=== PATIENT | male | born 1980 | race Caucasian/White ===

== ENCOUNTER 2020-08-29 11:17 | Inpatient (IN) | payer OTHER, SELFPAY ==
[2020-08-29] VITALS (9 sets, daily range): BP systolic 115–198; BP diastolic 64–99; PULSE 72–106; RESP 16–20; TEMP 36.3–37.2; O2SAT 96–99; BMI 36.3; BMI 34.9; BMI 35.0
--- NOTE | 2020-08-29 11:34 | US_ITS ---
STUDY: SCROTUM ULTRASOUND REASON FOR EXAM: Male, 40 years old. Swollen scrotum with pain TECHNIQUE: Ultrasound evaluation of the scrotum was performed with color Doppler and static juárez-scale imaging. COMPARISON: None. FINDINGS: RIGHT TESTICLE INTRATESTICULAR: There is a normal size of the right testicle. The right testicle measures 1.2 x 3.4 x 2.1 cm. There is a homogenous echotexture. There is normal arterial and normal venous vascularity. There is no demonstrated right testicular mass or cyst. EXTRATESTICULAR: The epididymis is normal in size. The epididymis head measures 1.1 cm. There is normal vascularity of the epididymis. There is no demonstrated epididymal cystic structure. There is no demonstrated hydrocele. There is no demonstrated varicocele. There is extratesticular echogenic region with suggestion of hernia containing nondistended loops of small bowel. There is scrotal skin thickening. LEFT TESTICLE INTRATESTICULAR: There is a normal size of the left testicle. The left testicle measures 3.8 x 2.5 x 2.3 cm. There is a homogenous echotexture. There is normal arterial and normal venous vascularity. There is no demonstrated left testicular mass or cyst. EXTRATESTICULAR: The epididymis is enlarged. The epididymis head measures 2.3 cm. There is normal vascularity of the epididymis. There is no demonstrated epididymal cystic structure. There is a small hydrocele. There is no demonstrated varicocele. There is no demonstrated extratesticular mass or cyst. There is scrotal skin thickening. US/Testicular with Arterial Flow IMPRESSION: Normal bilateral testicles. Right extratesticular echogenic structure suggesting hernia with nondistended loops of bowel. Electronically Signed: Freddy Figueroa MD at 13:47 EST , Service support ,
--- NOTE | 2020-08-29 11:41 | ED.DCSUM_ITS ---
- ER Visit Summary Date of Service: 08/29/20 Chief Complaint: [Swelling to the right side of scrotum] History of Present Illness: The patient is a 40 M [presents to the emergency department with complaint of swelling to the right side of the scrotum that started initially 5 days ago. Patient states initially started as a small lump is progressively enlarged and become more painful. Patient denies fever. He has had some off-and-on body aches. His throat felt a little dry today. He denies cough. He denies COVID-19 exposures. Patient states that he had a vasectomy in March by . Patient has history of diabetes that is type II and he tries to control it with diet. Patient has remote history as a child of a hernia repair he believes to the left side.] Physical Examination: [HEENT-PERRLA, EOMI. Cranial nerves II through XII grossly intact. TMs clear. Mucous membranes moist. No adenopathy. Cardiovascular-regular rate and rhythm without murmur or ectopy Lungs-clear to auscultation, chest wall stable without crepitus or subcu emphysema Abdomen-normoactive bowel sounds, soft, nontender, no rebound or rigidity, no peritoneal signs. exam-circumcised male. Patient has significant soft tissue swelling to the right side of the scrotum into the groin. He is got some excoriated skin that is oozing some purulent material. With compression of the indurated area moderate amount of free-flowing purulent debris expressed. There are some faint erythema and cellulitis noted. Testicles themselves are nontender. Normal cremasteric reflex. Extremities-intact ?4, normal range of motion, normal pulses, atraumatic] Test Results: [CBC with differential obtained showed a white count 11.8, hemoglobin 15, hematocrit 43, plates 182. Chemistries unremarkable. Glucose was 320. Lactate was 1.7. Ultrasound of the right scrotum and testicles obtained showed right extra testicular echogenic structure suggesting hernia with loop of bowel. I obtain a CT scan of the M pelvis with IV contrast to evaluate further and patient was noted to have a right inguinal hernia containing fat with infiltrative change of the skin of the scrotum. Patient noted to have a right inguinal hernia.] Emergency Department Course and Treatment: [Wound culture obtained from the drainage of the right side of the scrotum. IV line established and patient started on clindamycin. Blood cultures also ordered. I discussed case with general surgery and she felt this was more of a urologic issue and had no concern about the inguinal hernia containing fat. I did discuss case with patient's urologist who did asked that we admit patient to hospitalist and he would be happy to consult. At this point I do not see evidence of Piper's gangrene.] Treatment Plan: [Admit for IV antibiotics and possible further surgical intervention for incision and drainage] Disposition: [Admit] Impression: [Right scrotal abscess/cellulitis] This note was generated with [employer] dictation software. It may contain incorrect words, spelling, and punctuation that were not noted in review of the chart prior to signing ED Disposition - Plan for ED Patient: Referrals: Abram Villegas MD [Primary Care Provider] -
[2020-08-29 12:34] LABS: Absolute Lymphocyte Count 0.96 X10^3/uL (0.83-4.51); Absolute Neutrophil Count 9.3 X10^3/uL (2.0-7.7); Basophil# 0.03 X10^3/uL; Basophil% 0.3 % (0-1); Eosinophil# 0.01 X10^3/uL; Eosinophils% 0.1 % (0-5); Hematocrit 42.9 % (40-54); Lymphocyte # 0.96 X10^3/ul (4.0); Lymphocyte % 8.1 % (19-41); Mean Corpuscular Hgb 28.6 pg (27.0-32.0); Mean Corpuscular Volume 81.7 fL (80-94); Mean Platelet Vol. 11.5 fl (6.2-12.0); Monocyte# 1.44 X10^3/uL; Monocyte% 12.2 % (0-10); NRBC Flagged by Analyzer 0 % (0-5); Neutrophil # 9.27 X10^3/uL (2.7-7.7); Neutrophil % 78.5 % (47-70); Platelet Count 182 K/mm3 (150-450); RBC Distribution Width CV 11.9 % (11.6-14.6); RBC Distribution Width SD 34.9 fl (35.1-43.9); Red Blood Count 5.25 M/mm3 (4.6-6.2); White Blood Count 11.8 K/mm3 (4.4-11.0)
[2020-08-29 12:52] LABS: Lactic Acid 1.7 mmol/L (0.4-1.9)
[2020-08-29 12:53] LABS: Anion Gap 14 (5-15); BUN 11 mg/dL (7-18); Chloride 103 mmol/L (98-107); EST Glomerular Filtration Rate 88 mL/min (>60); Est Glom Filt Rate - Afr Amer 107 mL/min (>60); Estimated Creatinine Clearance 118.53 ml/min; Glucose 320 mg/dL (74-106); Sodium Level 133 mmol/L (136-145)
--- NOTE | 2020-08-29 13:49 | CT_ITS ---
STUDY: CT ABDOMEN AND PELVIS WITH CONTRAST REASON FOR EXAM: Male, 40 years old. RIGHT INGUINAL MASS/ABSCESS/HERNIA -- FOLLOW UP TO US DONE TODAY RADIATION DOSAGE (If Supplied By Facility): CTDIvol = ( 15.41 ) mGy, DLP = ( 1944.69 ) mGycm TECHNIQUE: Transaxial images were obtained from the dome of the diaphragm to the symphysis pubis without oral contrast. IV 100mL Isovue-300 was administered. Sagittal and coronal images were reconstructed. Individualized dose optimization techniques were used for this CT. COMPARISON: Ultrasound. FINDINGS: The visualized lung bases are unremarkable. The visualized portions of the heart are within normal limits. Normal liver. Normal gallbladder and extrahepatic biliary system. Normal spleen. Normal pancreas. Normal bilateral adrenal glands. Normal right kidney. Normal left kidney. Normal visualized stomach. Normal small intestine. Normal colon. The appendix is visualized and appears normal. Normal abdominal aorta. Normal inferior vena cava. Normal retroperitoneum. Normal urinary bladder. There is no free fluid in the abdomen or pelvis. There is a right inguinal hernia containing fat. There is infiltrative change and subcutaneous edema in the right inguinal region. There is bilateral scrotal skin thickening. Moderate degenerative change of the spine and hips. CT/Abdomen/Pelvis W IV Cont ONLY IMPRESSION: No intra-abdominal mass or obstruction. Scrotal skin thickening. Infiltrative changes in the right inguinal region. Fat-containing right inguinal hernia. Electronically Signed: Freddy Figueroa MD at 14:53 EST , Service support ,
--- NOTE | 2020-08-29 15:28 | NURSING ---
MED SURG WHITE SCROTAL ABSCESS/CELLULITIS, HYPERGLYCEMIA
--- NOTE | 2020-08-29 15:44 | HP.PCM_ITS ---
Problem List (1) Type 2 diabetes mellitus Status: Chronic (2) Cellulitis of scrotum Status: Acute (3) Obesity Status: Chronic History of Present Illness Date of Admission: 08/29/20 Chief Complaint: Right scrotal pain and swelling. The patient is a 40 year old M who presents emergency room due to right scrotal pain and swelling. Patient reports this began 5 days ago. He denies drainage or foul smell. Reports significant pain with movement. Denies fever, chills. Reports nausea without emesis which he feels is associated with episodes of pain. Denies other associated symptoms or complaints. Patient had vasectomy in March by Dr. Hamilton. He denies complications from surgery. He has a past medical history of type 2 diabetes mellitus, borderline hypertension, obesity. Patient states he was attempting diet and exercise in place of initiating medication for type 2 diabetes mellitus however states he has not been doing a good job lately. He also states he has been told he has borderline hypertension however has not previously been on medication regimen for this. Past Medical History Past Medical History (Chronic Problems): Chronic Problems Type 2 diabetes mellitus (Chronic) Obesity (Chronic) Allergies No Known Allergies Allergy (Verified 08/29/20 11:19) Home Medications: Ambulatory Orders Medication Instructions Recorded NK 08/29/20 Surgical History: - - Left shoulder labrum repair, vasectomy, hernia repair at age [age] Psychiatric History: No pertinent psych hx Lives: Spouse/ Significant Other Smoking Status: Never smoker Alcohol: Occasional Drugs: None - *Family History Maternal History Items: - - Denies known maternal medical history including cardiac history. Paternal History Items: - - Denies known paternal medical history including cardiac history. Review of Systems Constitutional: Denies: Chills, Fever, Weight Change HEENT: Denies: Head Aches, Sinus Congestion, Sinus Drainage Cardiovascular: Denies: Chest Pain, Palpitations Respiratory: Denies: Cough, Shortness of breath at rest, Sputum production Gastrointestinal: Denies: Abdominal Pain, Nausea, Vomiting Genitourinary: Denies: Dysuria Musculoskeletal: Denies: Joint Pain, Joint Tenderness Skin: Reports: - - Right scrotal redness, swelling and pain Neurological: Denies: Numbness, Tingling, Focal weakness Psychiatric: Denies: Anxiety, Depression, Homicidal Ideations, Suicidal Ideations Hematologic/ Lymphatic: Denies: Easy Bruising, Easy Bleeding VTE Information - Inpt Only VTE Present on Admission: No VTE Mechan Device Prophylaxis: None VTE Pharm Prophylaxis ordered?: No Reason prophylaxis not ordered:: Treatment Not Indicated - Physical Exam Vitals/I&O's: Vital Signs Temp Pulse Resp BP Pulse Ox 98.9 F 98 16 195/92 H 99 08/29/20 14:28 08/29/20 14:28 08/29/20 14:28 08/29/20 14:28 08/29/20 14:28 Oxygen Delivery Method Room Air Weight: 290 lb 5.581 oz Body Mass Index (BMI) 36.3 Intake and Output for Last 24 Hours 08/27/20 08/28/20 08/29/20 23:59 23:59 23:59 Intake Total 106 / 106 Balance 106 / 106 General: Alert, Oriented x3, Cooperative HEENT: Atraumatic, PERRLA, EOMI, Normocephalic Neck: Supple, No JVD, Negative Carotid Bruits Lungs: Clear to auscultation, Normal air movement Cardiovascular: Regular rate, No murmurs Abdomen: Bowel Sounds Present, Soft, Non Tender, Non-Distended, Obese Extremities: No clubbing, No cyanosis, Edema - Right scrotal Skin: No rashes, No breakdown, - - Scrotal erythema and edema, right-sided indurated area Musculoskeletal: No Tenderness to Palpation of Joints or Extremities Neurological: Cranial nerves II-XII grossly intact, Neuro grossly intact Psych/Mental Status: Normal Affect, Appropriate Laboratory Results 08/29/20 11:45: WBC 11.8 H, RBC 5.25, Hgb 15.0, Hct 42.9, MCV 81.7, MCH 28.6, MCHC 35.0, RDW Std Deviation 34.9 L, RDW Coeff of Aric 11.9, Plt Count 182, MPV 11.5, Immature Gran % (Auto) 0.800, Neut % (Auto) 78.5 H, Lymph % (Auto) 8.1 L, [place] % (Auto) 12.2 H, Eos % (Auto) 0.1, Baso % (Auto) 0.3, Absolute Neuts (auto) 9.3 H, Absolute Lymphs (auto) 0.96, Nucleated RBC % 0 08/29/20 11:45: Sodium 133 L, Potassium 4.0, Chloride 103, Carbon Dioxide 16.0 L , Anion Gap 14, BUN 11, Creatinine 1.00, Estim Creat Clear Calc 118.53, Est GFR (MDRD) Af Amer 107, Est GFR (MDRD) Non-Af 88, BUN/Creatinine Ratio 11.0, Glucose 320 H, Calcium 9.0 08/29/20 11:45: Lactic Acid 1.7 Assessment/Plan All Active Problems Cellulitis of scrotum (Acute) 1. Right scrotal cellulitis with possible abscess- Dr. Hamilton consulted from ED. MRSA PCR pending. Cultures pending. IV Vanco and IV Zosyn. 2. Uncontrolled type 2 diabetes mellitus-blood glucose elevated on admission. Check hemoglobin A1c. Accu-Cheks with sliding scale insulin. 3. Elevated blood pressure without history of hypertension-patient reports history of borderline hypertension. As needed hydralazine for systolic blood pressure greater than 160. Follow BP trend, if remains above goal, will initiate oral regimen. 4. Obesity-encouraged diet and lifestyle modifications. DVT prophylaxis- Low risk, not indicated This patient was seen by FELICIANO Bernstein under the supervision of Dr. Rodriguez.
[2020-08-29] MEDS: 0.9% Normal Saline 1,000 ML 100 ML IV (16:58)
[2020-08-29] MEDS: 0.9% Saline Lock 10 ML Syringe IV ×2 (16:58→18:37)
[2020-08-29] MEDS: Insulin Lispro 100 UNIT/ML INSULN.PEN SC ×2 (17:08→21:20)
[2020-08-29 17:21] LABS: M R Staph aureus DNA By PCR Negative (Negative); Staph aureus DNA By PCR NEGATIVE (Negative)
[2020-08-29 17:22] LABS: Probe Check PASS; Specimen Processing Control PASS
[2020-08-29 17:25] LABS: Hemoglobin A1c 10.9 % (3.8-5.6)
[2020-08-29 17:35] LABS: Bedside Glucose 240 mg/dL (70-110)
[2020-08-29] MEDS: hydrALAZINE 20 MG/ML Vial 10 MG IV (18:36)
--- NOTE | 2020-08-29 18:51 | PCM.RX.CS ---
Consult Pharmacy has been consulted to manage selected antiobiotic: Vancomycin Type of Consult: New start Suspected Infection: Skin/Soft tissue Labs: Sodium 133 mmol/L (136-145) L 08/29/20 11:45 Potassium 4.0 mmol/L (3.5-5.1) 08/29/20 11:45 Chloride 103 mmol/L (98-107) 08/29/20 11:45 Carbon Dioxide 16.0 mmol/L (21.0-32.0) L 08/29/20 11:45 Anion Gap 14 (5-15) 08/29/20 11:45 BUN 11 mg/dL (7-18) 08/29/20 11:45 Creatinine 1.00 mg/dL (0.70-1.30) 08/29/20 11:45 Est GFR (MDRD) Af Amer 107 mL/min (>60) 08/29/20 11:45 Est GFR (MDRD) Non-Af 88 mL/min (>60) 08/29/20 11:45 BUN/Creatinine Ratio 11.0 RATIO (-) 08/29/20 11:45 Glucose 320 mg/dL (74-106) H 08/29/20 11:45 Weight used for dosin kg Goal Trough: 10-15 mcg/mL Pharmacy Plan for Drug Dosing: NEW START IV VANCOMYCIN Consulting Physician: Paul Paluino) Indication: Cellulitis Goal Trough: 10-15 SrCr: 1 CrCl: 118 Comments: 15mg/kg, 2000mg, IV x1 loading dose administered 08/29/20 at 1749 Vancomcyin Dose: 2000mg IV q12h starting 08/30 at 0500 (per clinical pharmacology) Pending Level: 08/31 at 0430 Pharmacy Service will continue to monitor and adjust dosing as required. Follow-Up Labs: Trough Vancomycin - 08/31 @ 0430
[2020-08-29 21:30] LABS: Bedside Glucose 306 mg/dL (70-110)
[2020-08-30 03:07] VITALS: BP 146/77; PULSE 95; RESP 14; TEMP 37.1; O2SAT 98
[2020-08-30] MEDS: 0.9% Normal Saline 1,000 ML 100 ML IV ×2 (05:30→17:21)
[2020-08-30] MEDS: 0.9% Saline Lock 10 ML Syringe IV ×2 (05:31→23:04)
[2020-08-30] MEDS: Insulin Lispro 100 UNIT/ML INSULN.PEN SC ×4 (06:19→22:08)
[2020-08-30 06:40] LABS: Bedside Glucose 278 mg/dL (70-110)
--- NOTE | 2020-08-30 07:03 | PCS.PANDOC ---
PANDEMIC DOCUMENTATION INITIATED: Date: 08/29/2020 Time: 2398
[2020-08-30 07:29] LABS: Absolute Lymphocyte Count 1.33 X10^3/uL (0.83-4.51); Basophil# 0.04 X10^3/uL; Basophil% 0.5 % (0-1); Eosinophil# 0.06 X10^3/uL; Eosinophils% 0.7 % (0-5); Hematocrit 39.9 % (40-54); Hemoglobin 13.5 g/dL (13.0-16.5); Lymphocyte # 1.33 X10^3/ul (4.0); Lymphocyte % 15.8 % (19-41); Mean Corp Hgb Conc 33.8 g/dL (32-36); Mean Corpuscular Hgb 28.1 pg (27.0-32.0); Mean Platelet Vol. 11.2 fl (6.2-12.0); Monocyte% 11.9 % (0-10); NRBC Flagged by Analyzer 0 % (0-5); Neutrophil # 5.95 X10^3/uL (2.7-7.7); Neutrophil % 70.5 % (47-70); Platelet Count 179 K/mm3 (150-450); RBC Distribution Width SD 36.5 fl (35.1-43.9); Red Blood Count 4.81 M/mm3 (4.6-6.2); White Blood Count 8.4 K/mm3 (4.4-11.0)
[2020-08-30 07:49] LABS: Anion Gap 10 (5-15); BUN 10 mg/dL (7-18); BUN/Creat Ratio 11.2 RATIO (10-20); Calcium,Total 8.6 mg/dL (8.5-10.1); Chloride 108 mmol/L (98-107); Creatinine, Serum 0.89 mg/dL (0.70-1.30); EST Glomerular Filtration Rate 101 mL/min (>60); Est Glom Filt Rate - Afr Amer 122 mL/min (>60); Estimated Creatinine Clearance 133.19 ml/min; Glucose 244 mg/dL (74-106); Potassium 3.8 mmol/L (3.5-5.1); Sodium Level 136 mmol/L (136-145)
--- NOTE | 2020-08-30 09:47 | PCM.PROGNOTE ---
<PaulLenora [employer] - Last Filed: 08/30/20 10:06> Patient Problems: Active and Suspected Problems Cellulitis of scrotum (Acute) Subjective: Patient seen and examined. Denies fever, chills. Reports foul-smelling drainage. Pain controlled at this time. - Physical Exam Vitals/I&O's: Vital Signs Temp Pulse Resp BP Pulse Ox 98.8 F 95 14 146/77 H 98 08/30/20 03:07 08/30/20 03:07 08/30/20 03:07 08/30/20 03:07 08/30/20 03:07 Oxygen Delivery Method Room Air Weight: 279 lb 15.793 oz Body Mass Index (BMI) 34.9 Intake and Output for Last 24 Hours 08/28/20 08/29/20 08/30/20 23:59 23:59 23:59 Intake Total 1737.66 / 1737.66 1051.17 / 1051.17 Output Total 1500 / 1500 1200 / 1200 Balance 237.66 / 237.66 -148.83 / -148.83 General: Alert, Oriented x3, Cooperative HEENT: Atraumatic, PERRLA, EOMI, Normocephalic Neck: Supple, No JVD, Negative Carotid Bruits Lungs: Clear to auscultation, Normal air movement Cardiovascular: Regular rate, No murmurs Abdomen: Bowel Sounds Present, Soft, Non Tender, Non-Distended, Obese Extremities: No clubbing, No cyanosis, Capillary Refill Less than 3 Seconds, Edema - Right scrotal Skin: No rashes, No breakdown, - - Scrotal erythema and edema, right-sided indurated area Musculoskeletal: No Tenderness to Palpation of Joints or Extremities Neurological: Cranial nerves II-XII grossly intact, Neuro grossly intact Psych/Mental Status: Normal Affect, Appropriate Laboratory Results 08/29/20 11:45: WBC 11.8 H, RBC 5.25, Hgb 15.0, Hct 42.9, MCV 81.7, MCH 28.6, MCHC 35.0, RDW Std Deviation 34.9 L, RDW Coeff of Aric 11.9, Plt Count 182, MPV 11.5, Immature Gran % (Auto) 0.800, Neut % (Auto) 78.5 H, Lymph % (Auto) 8.1 L, Jewell % (Auto) 12.2 H, Eos % (Auto) 0.1, Baso % (Auto) 0.3, Absolute Neuts (auto) 9.3 H, Absolute Lymphs (auto) 0.96, Nucleated RBC % 0 08/29/20 11:45: Sodium 133 L, Potassium 4.0, Chloride 103, Carbon Dioxide 16.0 L, Anion Gap 14, BUN 11, Creatinine 1.00, Estim Creat Clear Calc 118.53, Est GFR (MDRD) Af Amer 107, Est GFR (MDRD) Non-Af 88, BUN/Creatinine Ratio 11.0, Glucose 320 H, Calcium 9.0 08/29/20 11:45: Lactic Acid 1.7 08/29/20 11:45: Hemoglobin A1c 10.9 H 08/29/20 16:05: S.aureus Protein A PCR NEGATIVE, MRSA (PCR) Negative 08/29/20 16:56: POC Glucose 240 H 08/29/20 21:18: POC Glucose 306 H 08/30/20 06:18: POC Glucose 278 H 08/30/20 06:59: WBC 8.4, RBC 4.81, Hgb 13.5, Hct 39.9 L, MCV 83.0, MCH 28.1, MCHC 33.8, RDW Std Deviation 36.5, RDW Coeff of Aric 12.0, Plt Count 179, MPV 11.2, Immature Gran % (Auto) 0.600, Neut % (Auto) 70.5 H, Lymph % (Auto) 15.8 L, Jewell % (Auto) 11.9 H, Eos % (Auto) 0.7, Baso % (Auto) 0.5, Absolute Neuts (auto) 6.0, Absolute Lymphs (auto) 1.33, Nucleated RBC % 0 08/30/20 06:59: Sodium 136, Potassium 3.8, Chloride 108 H, Carbon Dioxide 18.0 L, Anion Gap 10, BUN 10, Creatinine 0.89, Estim Creat Clear Calc 133.19, Est GFR (MDRD) Af Amer 122, Est GFR (MDRD) Non-Af 101, BUN/Creatinine Ratio 11.2, Glucose 244 H, Calcium 8.6 Current Medications Acetaminophen (Acetaminophen 325 Mg Tablet) 650 mg PO Q6H PRN PRN PRN Reason: Pain Score 1-10/Temp > 100.7 F Hydralazine HCl (Hydralazine 20 Mg/Ml Vial) 10 mg IV Q4H PRN PRN PRN Reason: BLOOD PRESSURE Last Admin: 08/29/20 18:36 Dose: 10 mg Documented by: Vancomycin IV Pharmacy to Dose (1 ea/ Sodium Chloride) 500 mls @ 250 mls/hr IV X1 PRN; Protocol PRN Reason: Rx to Dose Piperacillin Sod/Tazobactam (Sod 3.375 gm/ Sodium Chloride) 50 mls @ 12.5 mls/hr IV Q8 [facility] Last Admin: 08/30/20 05:31 Dose: 12.5 mls/hr Documented by: Sodium Chloride () 1,000 mls @ 100 mls/hr IV .Q10H [facility] Last Infusion: 08/30/20 05:30 Dose: 0 mls/hr Documented by: Sodium Chloride () 250 mls @ 15 mls/hr IV .[id number] PRN PRN Reason: Saline Flush Last Infusion: 08/30/20 05:31 Dose: 0 mls/hr Documented by: Sodium Chloride () 250 mls @ 15 mls/hr IV .[id number] PRN PRN Reason: Additional IVPB Infusion Vancomycin HCl 2,000 mg/ (Sodium Chloride) 540 mls @ 250 mls/hr IV Q12H [facility] Last Admin: 08/30/20 05:23 Dose: 250 mls/hr Documented by: Insulin Human Lispro (Insulin Lispro 100 Unit/Ml Insuln.Pen) 0 unit SC ACHS [facility]; Protocol Last Admin: 08/30/20 06:19 Dose: 6 units Documented by: Lisinopril (Lisinopril 10 Mg Tablet) 10 mg PO DAILY [facility] Metformin HCl (Metformin Hcl 1,000 Mg Tablet) 1,000 mg PO BIDCM [facility] Morphine Sulfate (Morphine 2 Mg/Ml Syringe) 2 mg IV Q3H PRN PRN PRN Reason: Pain Score 6-10 Ondansetron HCl (Ondansetron 4 Mg/2 Ml Vial) 4 mg IV Q8H PRN PRN PRN Reason: NAUSEA/VOMITING Oxycodone HCl (Oxycodone 5 Mg Tablet) 10 mg PO Q4H PRN PRN PRN Reason: Pain Score 4-5 Sodium Chloride (0.9% Saline Lock 10 Ml Syringe) 10 - 40 ml IV UD PRN PRN Reason: SALINE FLUSH Last Admin: 08/30/20 05:31 Dose: 10 ml Documented by: Medical Necessity - Tobacco Use Smoking Status: Never smoker Assessment/Plan All Active Problems Cellulitis of scrotum (Acute) 1. Right scrotal cellulitis with possible abscess- Dr. Hamilton consulted. MRSA/MSSA PCR negative. Cultures pending. Continue IV Vanco and IV Zosyn pending cultures. Possible OR pending urology consult. 2. Uncontrolled type 2 diabetes mellitus-hemoglobin A1c 10.9%. Patient has not been on oral or insulin regimen. Accu-Cheks with sliding scale insulin. Begin Lantus 10 units daily which will likely need titrated up. Initiated on metformin as well. 3. Elevated blood pressure without history of hypertension-patient reports history of borderline hypertension. As needed hydralazine for systolic blood pressure greater than 160. Initiated on lisinopril 10 mg daily. 4. Obesity-encouraged diet and lifestyle modifications. DVT prophylaxis- Low risk, not indicated This patient was seen by FELICIANO Bernstein under the supervision of Dr. Casas. <Karime Casas - Last Filed: 08/30/20 14:08> - Physical Exam Vitals/I&O's: Vital Signs Temp Pulse Resp BP Pulse Ox 98.0 F 92 16 159/83 H 98 08/30/20 10:00 08/30/20 10:00 08/30/20 10:00 08/30/20 10:00 08/30/20 10:00 Oxygen Delivery Method Room Air Weight: 279 lb 15.793 oz Body Mass Index (BMI) 34.9 Intake and Output for Last 24 Hours 08/28/20 08/29/20 08/30/20 23:59 23:59 23:59 Intake Total 1737.66 / 1737.66 1641.17 / 1641.17 Output Total 1500 / 1500 2200 / 2200 Balance 237.66 / 237.66 -558.83 / -558.83 Microbiology Past 72 Hours 08/29/20 12:05 Scrotal Abcess Gram Stain - Final 08/29/20 12:05 Scrotal Abcess Wound Culture - Preliminary Streptococcus group B Laboratory Results 08/29/20 11:45: Hemoglobin A1c 10.9 H 08/29/20 16:05: S.aureus Protein A PCR NEGATIVE, MRSA (PCR) Negative 08/29/20 16:56: POC Glucose 240 H 08/29/20 21:18: POC Glucose 306 H 08/30/20 06:18: POC Glucose 278 H 08/30/20 06:59: WBC 8.4, RBC 4.81, Hgb 13.5, Hct 39.9 L, MCV 83.0, MCH 28.1, MCHC 33.8, RDW Std Deviation 36.5, RDW Coeff of Aric 12.0, Plt Count 179, MPV 11.2, Immature Gran % (Auto) 0.600, Neut % (Auto) 70.5 H, Lymph % (Auto) 15.8 L, Jewell % (Auto) 11.9 H, Eos % (Auto) 0.7, Baso % (Auto) 0.5, Absolute Neuts (auto) 6.0, Absolute Lymphs (auto) 1.33, Nucleated RBC % 0 08/30/20 06:59: Sodium 136, Potassium 3.8, Chloride 108 H, Carbon Dioxide 18.0 L, Anion Gap 10, BUN 10, Creatinine 0.89, Estim Creat Clear Calc 133.19, Est GFR (MDRD) Af Amer 122, Est GFR (MDRD) Non-Af 101, BUN/Creatinine Ratio 11.2, Glucose 244 H, Calcium 8.6 08/30/20 11:47: POC Glucose 240 H Current Medications Acetaminophen (Acetaminophen 325 Mg Tablet) 650 mg PO Q6H PRN PRN PRN Reason: Pain Score 1-10/Temp > 100.7 F Last Admin: 08/30/20 11:53 Dose: 650 mg Documented by: Hydralazine HCl (Hydralazine 20 Mg/Ml Vial) 10 mg IV Q4H PRN PRN PRN Reason: BLOOD PRESSURE Last Admin: 08/29/20 18:36 Dose: 10 mg Documented by: Vancomycin IV Pharmacy to Dose (1 ea/ Sodium Chloride) 500 mls @ 250 mls/hr IV X1 PRN; Protocol PRN Reason: Rx to Dose Piperacillin Sod/Tazobactam (Sod 3.375 gm/ Sodium Chloride) 50 mls @ 12.5 mls/hr IV Q8 [facility] Last Infusion: 08/30/20 09:31 Dose: Infused Documented by: Sodium Chloride () 1,000 mls @ 100 mls/hr IV .Q10H [facility] Last Infusion: 08/30/20 07:33 Dose: 100 mls/hr Documented by: Sodium Chloride () 250 mls @ 15 mls/hr IV .[id number] PRN PRN Reason: Saline Flush Last Infusion: 08/30/20 09:31 Dose: 15 mls/hr Documented by: Sodium Chloride () 250 mls @ 15 mls/hr IV .[id number] PRN PRN Reason: Additional IVPB Infusion Vancomycin HCl 2,000 mg/ (Sodium Chloride) 540 mls @ 250 mls/hr IV Q12H [facility] Last Infusion: 08/30/20 07:33 Dose: Infused Documented by: Insulin Glargine (Insulin Glargine 100 Units/Ml Pen) 10 units SC DAILY [facility] Insulin Human Lispro (Insulin Lispro 100 Unit/Ml Insuln.Pen) 0 unit SC ACHS [facility]; Protocol Last Admin: 08/30/20 11:54 Dose: 4 units Documented by: Lisinopril (Lisinopril 10 Mg Tablet) 10 mg PO HS [facility] Metformin HCl (Metformin Hcl 1,000 Mg Tablet) 1,000 mg PO BIDCM [facility] Morphine Sulfate (Morphine 2 Mg/Ml Syringe) 2 mg IV Q3H PRN PRN PRN Reason: Pain Score 6-10 Ondansetron HCl (Ondansetron 4 Mg/2 Ml Vial) 4 mg IV Q8H PRN PRN PRN Reason: NAUSEA/VOMITING Oxycodone HCl (Oxycodone 5 Mg Tablet) 10 mg PO Q4H PRN PRN PRN Reason: Pain Score 4-5 Sodium Chloride (0.9% Saline Lock 10 Ml Syringe) 10 - 40 ml IV UD PRN PRN Reason: SALINE FLUSH Last Admin: 08/30/20 05:31 Dose: 10 ml Documented by: Assessment/Plan Patient seen by Lenora WIGGINS under my supervision Patient seen and examined. He was admitted with a complaint of right scrotal pain and swelling for about 5 days prior to admission. Patient states he has been itching in the scrotum and so had been scratching. He had a vasectomy about 5 months ago in March 2020 and denied any complications from the surgery. He had no assisted fever or chills, nausea vomiting or diarrhea. He has a history of type 2 diabetes mellitus which he claims is diet controlled. He has been managed for right scrotal abscess. Patient complained of foul-smelling drainage from the right scrotum. He denied any fever or chills. He did complain of pain at the site of the scrotal abscess. Review of systems otherwise negative. He is afebrile. WBC is down to 8.4. O/E: Vital Signs Temp Pulse Resp BP Pulse Ox 98.0 F 92 16 159/83 H 98 08/30/20 10:00 08/30/20 10:00 08/30/20 10:00 08/30/20 10:00 08/30/20 10:00 General: Alert, Oriented x3, Cooperative HEENT: Atraumatic, PERRLA, EOMI, Normocephalic Neck: Supple, No JVD, Negative Carotid Bruits Lungs: Clear to auscultation, Normal air movement Cardiovascular: Regular rate, No murmurs Abdomen: Bowel Sounds Present, Soft, Non Tender, Non-Distended, Obese Extremities: No clubbing, No cyanosis, Edema - Right scrotal Skin: No rashes, No breakdown, - - right sided Scrotal erythema and edema, right-sided indurated area, with oozing of pus Musculoskeletal: No Tenderness to Palpation of Joints or Extremities Neurological: Cranial nerves II-XII grossly intact, Neuro grossly intact Psych/Mental Status: Normal Affect, Appropriate Patient is currently on IV Zosyn. Will continue. Urology consulted for possible I&D. Will await urology recommendations. Of note, patient's A1c is 10.9. Patient sees he has never been on medication for diabetes and used to control it with diet and exercise but has not been doing a good job lately. Will start patient on Metformin 1000 mg twice daily and on Lantus 10 units daily. Once A1c trends down, patient can be switched to one of the newer diabetes medications such as SGLT2 inhibitors or GLP-1 agonists. Patient's blood pressure is also poorly controlled and has been up in the 160s systolic and 140 systolic. Patient has been on any blood pressure medication. Patient started on p.o. lisinopril 10 mg daily. Will adjust dose as needed based on blood pressure response. Patient counseled on weight loss through the DASH diet and regular exercise. Rest as per Lenora Miller [employer]'s note, which I have reviewed and endorsed. Inpatient E&M: [id number] Subs Hosp L2
[2020-08-30 10:00] VITALS: BP 159/83; PULSE 92; RESP 16; TEMP 36.7; O2SAT 98
[2020-08-30] MEDS: Acetaminophen 325 MG Tablet 650 MG PO (11:53)
[2020-08-30 12:20] LABS: Bedside Glucose 240 mg/dL (70-110)
--- NOTE | 2020-08-30 14:08 | CON.PCM_ITS ---
Problem List (1) Scrotal abscess Status: Acute (2) Cellulitis of scrotum Status: Acute Reason for Consult Date of Consultation: 08/30/20 Reason for Consultation: Scrotal abscess History of Present Illness: The patient is a 40 year old male who noticed a lump developing in his right scrotum about 3 to 4 days ago he then developed more pain and swelling finally purulent drainage infected fluid drained out of the right side of the scrotum presented to the emergency room he was admitted for IV antibiotics saw the patient today in consultation we are going to do a I&D at the bedside I was able to express a lot of purulent material but needs to be opened up in order to allow the infection and abscess to drain properly. Of note he did have a vasectomy performed by myself but that was in March of this past year. He did drop off one sample after the vasectomy which was negative at that point he had no complaints. Past Medical History Past Medical History (Chronic Problems): Chronic Problems Type 2 diabetes mellitus (Chronic) Obesity (Chronic) Allergies No Known Allergies Allergy (Verified 08/29/20 11:19) Home Medications: Ambulatory Orders Medication Instructions Recorded NK 08/29/20 Surgical History: - - Left shoulder labrum repair, vasectomy, hernia repair at age 7 or 8 Psychiatric History: No pertinent psych hx Lives: Spouse/ Significant Other Smoking Status: Never smoker Alcohol: Occasional Drugs: None - *Family History Maternal History Items: - - Denies known maternal medical history including cardiac history. Paternal History Items: - - Denies known paternal medical history including cardiac history. Review of Systems Constitutional: Denies: Chills, Fever, Weight Change HEENT: Denies: Head Aches, Sinus Congestion, Sinus Drainage Cardiovascular: Denies: Chest Pain, Palpitations Respiratory: Denies: Cough, Shortness of breath at rest, Sputum production Gastrointestinal: Denies: Abdominal Pain, Nausea, Vomiting Genitourinary: Denies: Dysuria Musculoskeletal: Denies: Joint Pain, Joint Tenderness Skin: Denies: Rash, Wounds Neurological: Denies: Numbness, Tingling, Focal weakness Psychiatric: Denies: Anxiety, Depression, Homicidal Ideations, Suicidal Ideations Hematologic/ Lymphatic: Denies: Easy Bruising, Easy Bleeding Physical Exam - Physical Exam Vital Signs Temp 98.0 F 08/30/20 10:00 Pulse 92 08/30/20 10:00 Resp 16 08/30/20 10:00 BP 159/83 H 08/30/20 10:00 Pulse Ox 98 08/30/20 10:00 Intake & Output 08/28/20 08/29/20 08/30/20 23:59 23:59 23:59 Intake Total 1737.66 / 1737.66 1641.17 / 1641.17 Output Total 1500 / 1500 2200 / 2200 Balance 237.66 / 237.66 -558.83 / -558.83 Weight: 127 kg 127 kg Intake: Oral 1000 / 1000 Intake, IV Amount 737.66 / 737.66 1641.17 / 1641.17 0.9% Normal Saline 1,000 ML @ 41.66 / 41.66 941.67 / 941.67 100 mls/hr IV .Q10H [facility] Rx#: [id number] 0.9% Normal Saline 250 ML @ 15 0 / 0 59.50 / 59.50 mls/hr IV .[id number] PRN Rx#: [id number] Clindamycin Phosphate 900 MG In 106 / 106 Dextrose 5%-Water 100 ML @ 150 mls/hr IV X1 [facility] Rx#:[id number] Vancomycin IV 1,000 MG/20 ML In 540 / 540 0.9% Normal Saline 500 ML @ 250 mls/hr IV Q12H [facility] Rx#: [id number] Vancomycin IV 1,000 MG/20 ML In 540 / 540 0.9% Normal Saline 500 ML @ 250 mls/hr IV X1 [facility] Rx#: [id number] Zosyn 3.375 GM In 0.9% Normal 50 / 50 Saline 50 ML @ 100 mls/hr IV X1 [facility] Rx#:[id number] Zosyn 3.375 GM In 0.9% Normal 100 / 100 Saline 50 ML @ 12.5 mls/hr IV Q8 [facility] Rx#:[id number] Output: Urine 1500 / 1500 2200 / 2200 General: Alert, Oriented x3 HEENT: Atraumatic Oral: Moist Mucosa Neck: Supple Lungs: Normal air movement Cardiovascular: Regular Rhythm Abdomen: Soft Microbiology Past 72 Hours 08/29/20 12:05 Gram Stain - Final Scrotal Abcess Wound Culture - Preliminary Streptococcus group B Laboratory Tests Past 24 Hrs 08/29/20 08/29/20 08/30/20 11:45 16:05 06:59 WBC 8.4 RBC 4.81 Hgb 13.5 Hct 39.9 L MCV 83.0 MCH 28.1 MCHC 33.8 RDW Std Deviation 36.5 RDW Coeff of Aric 12.0 Plt Count 179 MPV 11.2 Immature Gran % (Auto) 0.600 Neut % (Auto) 70.5 H Lymph % (Auto) 15.8 L Butler % (Auto) 11.9 H Eos % (Auto) 0.7 Baso % (Auto) 0.5 Absolute Neuts (auto) 6.0 Absolute Lymphs (auto) 1.33 Nucleated RBC % 0 Sodium Potassium Chloride Carbon Dioxide Anion Gap BUN Creatinine Estim Creat Clear Calc Est GFR (MDRD) Af Amer Est GFR (MDRD) Non-Af BUN/Creatinine Ratio Glucose Hemoglobin A1c 10.9 H Calcium S.aureus Protein A PCR NEGATIVE MRSA (PCR) Negative 08/30/20 06:59 WBC RBC Hgb Hct MCV MCH MCHC RDW Std Deviation RDW Coeff of Aric Plt Count MPV Immature Gran % (Auto) Neut % (Auto) Lymph % (Auto) Butler % (Auto) Eos % (Auto) Baso % (Auto) Absolute Neuts (auto) Absolute Lymphs (auto) Nucleated RBC % Sodium 136 Potassium 3.8 Chloride 108 H Carbon Dioxide 18.0 L Anion Gap 10 BUN 10 Creatinine 0.89 Estim Creat Clear Calc 133.19 Est GFR (MDRD) Af Amer 122 Est GFR (MDRD) Non-Af 101 BUN/Creatinine Ratio 11.2 Glucose 244 H Hemoglobin A1c Calcium 8.6 S.aureus Protein A PCR MRSA (PCR) Assessment/Plan All Active Problems Cellulitis of scrotum (Acute) Scrotal abscess (Acute) 40-year-old male with scrotal abscess in the right hemiscrotum incision and drainage at the bedside continue with IV antibiotics and will need to have wound changes 3 8 hours he will need to go home with wound changes at home 3 times a day.
[2020-08-30] MEDS: Morphine 2 MG/ML Syringe IV (14:09)
[2020-08-30] MEDS: Lidocaine 2% (20 ml mdv) 20 ML Vial 5 ML INFILT (14:26)
[2020-08-30 15:30] VITALS: BP 157/76; PULSE 89; RESP 16; TEMP 37; O2SAT 96
[2020-08-30 16:51] LABS: Bedside Glucose 226 mg/dL (70-110)
[2020-08-30] MEDS: metFORMIN HCl 1,000 MG Tablet 1000 MG PO (17:12)
[2020-08-30] MEDS: oxyCODONE 5 MG Tablet 10 MG PO (20:29)
[2020-08-30 22:04] VITALS: BP 183/95; PULSE 94; RESP 16; TEMP 37.3; O2SAT 99
[2020-08-30] MEDS: Lisinopril 10 MG Tablet PO (22:07)
[2020-08-30 22:15] LABS: Bedside Glucose 257 mg/dL (70-110)
[2020-08-30 23:04] VITALS: BP 174/94; PULSE 97
[2020-08-30] MEDS: hydrALAZINE 20 MG/ML Vial 10 MG IV (23:04)
[2020-08-31 03:16] VITALS: BP 138/85; PULSE 87; RESP 16; TEMP 37; O2SAT 97
[2020-08-31] MEDS: oxyCODONE 5 MG Tablet 10 MG PO (03:39)
[2020-08-31 04:58] LABS: Vancomycin, Trough Level 4.6 ug/mL (5.0-15.0)
[2020-08-31] MEDS: 0.9% Normal Saline 1,000 ML 100 ML IV (05:36)
--- NOTE | 2020-08-31 06:13 | PCM.RX.CS ---
Consult Pharmacy has been consulted to manage selected antiobiotic: Vancomycin Type of Consult: Follow-up Labs: Sodium 136 mmol/L (136-145) 08/30/20 06:59 Potassium 3.8 mmol/L (3.5-5.1) 08/30/20 06:59 Chloride 108 mmol/L (98-107) H 08/30/20 06:59 Carbon Dioxide 18.0 mmol/L (21.0-32.0) L 08/30/20 06:59 Anion Gap 10 (5-15) 08/30/20 06:59 BUN 10 mg/dL (7-18) 08/30/20 06:59 Creatinine 0.89 mg/dL (0.70-1.30) 08/30/20 06:59 Est GFR (MDRD) Af Amer 122 mL/min (>60) 08/30/20 06:59 Est GFR (MDRD) Non-Af 101 mL/min (>60) 08/30/20 06:59 BUN/Creatinine Ratio 11.2 RATIO (10-20) 08/30/20 06:59 Glucose 244 mg/dL (74-106) H 08/30/20 06:59 Vancomycin Trough 4.6 ug/mL (5.0-15.0) L 08/31/20 04:16 Microbiology: Microbiology 08/29/20 12:05 Scrotal Abcess Gram Stain - Final 08/29/20 12:05 Scrotal Abcess Wound Culture - Preliminary Streptococcus group B Goal Trough: 15-20 mcg/mL Pharmacy Plan for Drug Dosing: Pharmacy Service will continue to monitor and adjust dosing as required. TROUGH 4.6 INCREASE TO 2GM Q8H Follow-Up Labs: Trough Vancomycin Labs to be done on [date and time ordered]: 09/01 @ 7422
[2020-08-31] MEDS: Insulin Lispro 100 UNIT/ML INSULN.PEN SC ×3 (06:34→16:13)
[2020-08-31 06:40] LABS: Bedside Glucose 245 mg/dL (70-110)
[2020-08-31] MEDS: Acetaminophen 325 MG Tablet 650 MG PO (08:10)
[2020-08-31] MEDS: metFORMIN HCl 1,000 MG Tablet 1000 MG PO ×2 (08:11→16:14)
[2020-08-31 08:15] VITALS: BP 135/75; PULSE 86; RESP 16; TEMP 36.8; O2SAT 97
--- NOTE | 2020-08-31 09:10 | PCM.PN.BLA ---
Progress Note 40-year-old male status post incision and drainage of abscess yesterday. Once clinically stable he can go home with antibiotics continue with the dry dressings at home by family members. He can follow-up my office after discharge call me with questions. STROKE Vital Signs/Narrative: Vital Signs Temp Pulse Resp BP Pulse Ox 08/31/20 08:15 98.3 F 86 16 135/75 H 97
--- NOTE | 2020-08-31 09:45 | CASEMGMT ---
RN VELVET Face to Face with patient for initial transition planning/care coordination assessment. RN CM introduced self and role at [facility]. Patient lying in bed, alert and oriented. Patient willing to participate in assessment and is able to answer all questions appropriately. Care providers, pharmacy, and demographics verified. Patient wishes to discharge home, denies need for home health at this time. Patient states he has no further needs or concerns at this time. CM to follow for discharge planning needs that may arise. PCP: Bakari Specialists: [facility] Pharmacy: [facility] Insurance: MMO Prescription Benefit: yes Living Will/HPOA: none LNOK: Living Arrangements: patient lives with in a single story home with 3 steps to enter. Patient states he is independent at home. Transportation: self/ DME/HHC: Patient denies DME or previous HHC Disposition Plan: Patient to discharge home with family support and follow-up plans in place. Toyin COTTO, RN, CM
[2020-08-31 11:06] VITALS: BP 123/64; PULSE 87; RESP 16; TEMP 36.9; O2SAT 98
[2020-08-31 11:25] LABS: Bedside Glucose 288 mg/dL (70-110)
[2020-08-31] MEDS: Ondansetron 4 MG/2 ML Vial IV (13:36)
[2020-08-31] MEDS: Morphine 2 MG/ML Syringe IV (13:36)
--- NOTE | 2020-08-31 13:52 | NURSING ---
changed dressing educated on dressing change.
--- NOTE | 2020-08-31 14:35 | DCINST_ITS ---
- Discharge Diagnoses Current Active Problems: Current Active and Chronic Problems Type 2 diabetes mellitus (Chronic) Cellulitis of scrotum (Acute) Obesity (Chronic) Scrotal abscess (Acute) You will use the following diet at home:: Calorie/Carbohydrate Controlled (specify 1200, 1400, etc) - 1800 Your food should be the consistency of: Regular Your liquids should be the consistency of: Regular/Thin Discharge Activity: Return to Normal Activity Call your doctor if your incision/area has: Continuous Slow Oozing, Increased Pain/ Swelling, Increased Redness Call your doctor if you observe: Fever of 101 or Higher, Shortness of breath, Dizziness, Fainting spells, Swelling in the ankles, Chest pain, Increased palpitations (irregular heartbeat) Instructions: How to Check Your Blood Sugar, Oral Therapy for Type 2 Diabetes, Understanding Type 2 Diabetes, What Is Type 2 Diabetes? Allergies/Adverse Reactions: Allergies No Known Allergies Allergy (Verified 08/29/20 11:19) Medications to take at Discharge Amoxicillin/Potassium Clav [Augmentin 875-125 Tablet] 1 ea PO BID #16 tab 08/31/20 Hydrocodone/Acetaminophen [Chilton 5-325 Tablet] 1 ea PO BID PRN PRN #10 tab 08/31/20 Lisinopril [Zestril] 10 mg PO HS #30 tab 08/31/20 Ondansetron [Zofran Odt] 4 mg PO Q12H PRN PRN #10 tab 08/31/20 metFORMIN HCl [Glucophage] 1,000 mg PO BIDCM #60 tab 08/31/20 The following prescriptions were given: Amoxicillin/Potassium Clav [Augmentin 875-125 Tablet] 1 ea PO BID #16 tab Transmission Status: Pending to [facility] metFORMIN HCl [Glucophage] 1,000 mg PO BIDCM #60 tab Transmission Status: Pending to [facility] Hydrocodone/Acetaminophen [Chilton 5-325 Tablet] 1 ea PO BID PRN PRN #10 tab PRN Reason: Pain Score 4-10 Transmission Status: Sent to [facility] Lisinopril [Zestril] 10 mg PO HS #30 tab Transmission Status: Pending to [facility] Ondansetron [Zofran Odt] 4 mg PO Q12H PRN PRN #10 tab PRN Reason: Nausea Transmission Status: Sent to [facility] Primary Care Physician: Abram Villegas MD [Primary Care Provider] - Please follow up with your Primary Care Physician in: 3-5 days Test Results: Test results from this visit will be discussed in further detail at your follow- up appointment, if applicable. Please Follow Up With: Grady Hamilton MD When: 1-2 weeks
[2020-08-31 14:37] VITALS: BP 151/82; PULSE 83; RESP 16; TEMP 36.8; O2SAT 99
[2020-08-31 16:21] LABS: Bedside Glucose 258 mg/dL (70-110)
--- NOTE | 2020-08-31 18:17 | PCM.DC.SUM ---
Discharge Date and Diagnosis - Problem List Patient Problems: Active and Suspected Problems Cellulitis of scrotum (Acute) Scrotal abscess (Acute) Date of Admission: 08/29/20 Date of Discharge: 08/31/20 - Primary Discharge Diagnosis Acute Problems: Active Problems Cellulitis of scrotum (Acute) Scrotal abscess (Acute) - Secondary Discharge Diagnosis Chronic Problems: Chronic Problems Type 2 diabetes mellitus (Chronic) Obesity (Chronic) Hospital Course and Treatment Imaging Results: Clinical Impression(s) from Imaging Studies Testicular Ultrasound 08/29/20 11:34 IMPRESSION: Normal bilateral testicles. Right extratesticular echogenic structure suggesting hernia with nondistended loops of bowel. Electronically Signed: Freddy Figueroa MD at 13:47 EST , Service support , Abdomen/Pelvis CT 08/29/20 13:49 IMPRESSION: No intra-abdominal mass or obstruction. Scrotal skin thickening. Infiltrative changes in the right inguinal region. Fat-containing right inguinal hernia. Electronically Signed: Freddy Figueroa MD at 14:53 EST , Service support , Consults: Urology Operations: None Procedures: None Summary of Care Provided: Per HPI: The patient is a 40 year old M who presents emergency room due to right scrotal pain and swelling. Patient reports this began 5 days ago. He denies drainage or foul smell. Reports significant pain with movement. Denies fever, chills. Reports nausea without emesis which he feels is associated with episodes of pain. Denies other associated symptoms or complaints. Patient had vasectomy in March by Dr. Hamilton. He denies complications from surgery. He has a past medical history of type 2 diabetes mellitus, borderline hypertension, obesity. Patient states he was attempting diet and exercise in place of initiating medication for type 2 diabetes mellitus however states he has not been doing a good job lately. He also states he has been told he has borderline hypertension however has not previously been on medication regimen for this. Hospital Course: 1. Right scrotal abscess with cellulitis/uncontrolled type 2 diabetes/[id number] male who presents to the hospital with right scrotal pain and swelling was found to have an abscess. This was drained partially in the ER and then further drained by urology at bedside. Initial culture demonstrates strep agalactiae that is sensitive to penicillin. He was started on Zosyn and vancomycin with decent improvement in his swelling and erythema. We will plan for discharge on Augmentin with follow-up with urology. He and his are taught how to do the dressing changes and the packing and he will likely need to take a dose of narcotics before packing as well as some antinausea medication at the same time. He feels well enough to go home today and would like to go home today. I did have a long discussion with him about his new onset type 2 diabetes. He says that he used to have diabetes a few years ago but was able to control it with diet. He was started on Metformin as well as insulin since his A1c was 10.9 on admission, and lisinopril for elevated blood pressure that this was likely secondary to pain. I discussed with him the need for lisinopril as well as continued Metformin and diet modification. I feel like initiating him also on insulin is here to be too much for him to manage at home since he was not on any medications prior to this. I did have an extensive counseling session with him on appropriate diet and exercise for weight loss and the possibility that if he does get his weight under control that he could potentially be off of all diabetic medication in the future. He will need close outpatient follow-up with his PCP in 3 to 5 days. I discussed with him the plan for discharge today with him and his both of whom expressed understanding of the risk and benefits of going home and would like to go home today. Patient Problems: Active and Suspected Problems Cellulitis of scrotum (Acute) Scrotal abscess (Acute) - Physical Exam Vitals/I&O's: Vital Signs Temp Pulse Resp BP Pulse Ox 98.3 F 83 16 151/82 H 99 08/31/20 14:37 08/31/20 14:37 08/31/20 14:37 08/31/20 14:37 08/31/20 14:37 Oxygen Delivery Method Room Air Weight: 279 lb 15.793 oz Body Mass Index (BMI) 34.9 Intake and Output for Last 24 Hours 08/29/20 08/30/20 08/31/20 23:59 23:59 23:59 Intake Total 1737.66 / 1737.66 4348.75 / 4948.75 4490.54 / 4490.54 Output Total 1500 / 1500 3500 / 4300 1999 / 1999 Balance 237.66 / 237.66 848.75 / 648.75 2490.54 / 2490.54 General: Alert, Oriented x3, Cooperative, No apparent distress HEENT: Atraumatic, PERRLA, EOMI, Normocephalic Oral: Moist Mucosa Neck: Supple, No JVD Lungs: Clear to auscultation, Normal air movement, No rhonchi, No wheeze, No rales Cardiovascular: Regular rate, Regular Rhythm, Normal S1, Normal S2, No murmurs Abdomen: Soft, Non Tender, Non-Distended, No Hepato-splenomegaly, - - Scrotal swelling with a 1 cm incision in his right scrotum with packing there is induration around the scrotum as well as in the pubis. Extremities: No edema, Capillary Refill Less than 3 Seconds Skin: No rashes, No breakdown Neurological: Neuro grossly intact, Sensory exam intact to light touch and pain Psych/Mental Status: Normal Affect, Appropriate Microbiology Past 72 Hours 08/29/20 11:45 Blood Culture (Wb) - Right Hand Blood Culture - Preliminary No growth in 48 hours. 08/29/20 11:45 Blood Culture (Wb) - Anticubital Left Blood Culture - Preliminary No growth in 48 hours. 08/29/20 12:05 Scrotal Abcess Gram Stain - Final 08/29/20 12:05 Scrotal Abcess Wound Culture - Final Streptococcus agalactiae (B) Laboratory Results 08/30/20 22:07: POC Glucose 257 H 08/31/20 04:16: Vancomycin Trough 4.6 L 08/31/20 06:33: POC Glucose 245 H 08/31/20 11:04: POC Glucose 288 H 08/31/20 16:12: POC Glucose 258 H Discharge Activity: Return to Normal Activity Call your doctor if your incision/area has: Continuous Slow Oozing, Increased Pain/ Swelling, Increased Redness Call your doctor if you observe: Fever of 101 or Higher, Shortness of breath, Dizziness, Fainting spells, Swelling in the ankles, Chest pain, Increased palpitations (irregular heartbeat) Home Medications: Medications to take at Discharge Amoxicillin/Potassium Clav [Augmentin 875-125 Tablet] 1 ea PO BID #16 tab 08/31/20 Hydrocodone/Acetaminophen [Glendo 5-325 Tablet] 1 ea PO BID PRN PRN #10 tab 08/31/20 Lisinopril [Zestril] 10 mg PO HS #30 tab 08/31/20 Ondansetron [Zofran Odt] 4 mg PO Q12H PRN PRN #10 tab 08/31/20 metFORMIN HCl [Glucophage] 1,000 mg PO BIDCM #60 tab 08/31/20 Following Prescriptions Were Given to Patient: Amoxicillin/Potassium Clav [Augmentin 875-125 Tablet] 1 ea PO BID #16 tab Transmission Status: Received by [facility] metFORMIN HCl [Glucophage] 1,000 mg PO BIDCM #60 tab Transmission Status: Received by [facility] Hydrocodone/Acetaminophen [Glendo 5-325 Tablet] 1 ea PO BID PRN PRN #10 tab PRN Reason: Pain Score 4-10 Transmission Status: Received by [facility] Lisinopril [Zestril] 10 mg PO HS #30 tab Transmission Status: Received by [facility] Ondansetron [Zofran Odt] 4 mg PO Q12H PRN PRN #10 tab PRN Reason: Nausea Transmission Status: Received by [facility] Other Amb Orders: Glucometer Location: None Selected Primary Care Physician: Abram Villegas MD [Primary Care Provider] - Please follow up with your Primary Care Physician in: 3-5 days Please Follow Up With: Grady Hamilton MD When: 1-2 weeks Patient Instructions: What Is Type 2 Diabetes?, How to Check Your Blood Sugar, Oral Therapy for Type 2 Diabetes, Understanding Type 2 Diabetes Disposition: Home Minutes spent on discharge:: 35 Patient Condition:: Stable Medical Necessity - Tobacco Use Smoking Status: Never smoker Meaningful Use Info Meaningful Use Diagnoses (Choose all that apply): None applicable Inpatient E&M: 88004 Disch Hosp
== END 2020-08-31 17:55 | disposition home or self-care (01) | DRG 728 ==
LOC: ED 12:50 → MS3 16:21
PROVIDERS: Nurse Practitioner Family; Student in an Organized Health Care Education/Training Program; Admitting Provider Family Medicine; Emergency Provider Emergency Medicine; PCP Family Medicine; Visit Provider Family Medicine
DX: N49.2 Inflammatory disorders of scrotum (principal); E66.9 Obesity, unspecified; B95.4 Other streptococcus as the cause of diseases classified elsewhere; I10 Essential (primary) hypertension; E11.65 Type 2 diabetes mellitus with hyperglycemia; Z68.36 Body mass index [BMI] 36.0-36.9, adult; Z79.4 Long term (current) use of insulin; Z79.899 Other long term (current) drug therapy
CPT/HCPCS: 36415; 74177; 76870; 80048; 80202; 82962; 83036; 83605; 85025; 87040; 87070; 87077; 87186; 87205; 87640; 93976; 97802; 99285; J7030; J7040; J7050; Q9967; A4216; J2405

== ENCOUNTER → 2020-11-11 11:48 | Outpatient (CLI) | payer OTHER, SELFPAY ==
[2020-08-29 16:13] VITALS: BMI 34.9
[2020-11-11 16:01] LABS: Anion Gap 6 (5-15); BUN 13 mg/dL (7-18); BUN/Creat Ratio 14.9 RATIO (10-20); Calcium,Total 9.1 mg/dL (8.5-10.1); Chloride 102 mmol/L (98-107); Cholesterol 196 mg/dL (200); Creatinine, Serum 0.88 mg/dL (0.70-1.30); EST Glomerular Filtration Rate 103 mL/min (>60); Est Glom Filt Rate - Afr Amer 125 mL/min (>60); Glucose 267 mg/dL (74-106); High Density Lipoprotein 41 mg/dL; Potassium 4.2 mmol/L (3.5-5.1); Sodium Level 136 mmol/L (136-145); Triglycerides 238 mg/dL; Very Low Density Lipoprotein 48 mg/dL (5-40)
== END ==
PROVIDERS: PCP Family Medicine; Visit Provider Family Medicine
DX: E11.65 Type 2 diabetes mellitus with hyperglycemia (principal); I10 Essential (primary) hypertension
CPT/HCPCS: 80048; 80061

== ENCOUNTER 2020-12-31 13:51 | Outpatient (RCR) | payer OTHER, SELFPAY ==
[2020-08-29 16:13] VITALS: BMI 34.9
== END 2021-02-16 23:59 ==
LOC: IMMUN 13:51
PROVIDERS: PCP Family Medicine; Referring Provider Family Medicine; Visit Provider Family Medicine
DX: Z23 Encounter for immunization (principal)
CPT/HCPCS: 0001A; 0002A; 91300

== ENCOUNTER → 2025-09-03 | Outpatient (CLI) | payer OTHER, SELFPAY ==
[2025-09-03 09:09] LABS: Hematocrit 45.2 % (40-54); Hemoglobin 15.8 g/dL (13.0-16.5); Immature Granulocytes Count 0.040 X10^3/uL (0.0-0.0); Mean Corp Hgb Conc 35.0 g/dL (32-36); Mean Corpuscular Volume 82.2 fL (80-94); Mean Platelet Vol. 11.4 fl (6.2-12.0); NRBC Flagged by Analyzer 0 % (0-5); Platelet Count 248 K/mm3 (150-450); RBC Distribution Width CV 11.8 % (11.6-14.6); RBC Distribution Width SD 35.3 fl (35.1-43.9); Red Blood Count 5.50 M/mm3 (4.6-6.2); White Blood Count 5.0 K/mm3 (4.4-11.0)
--- OUTSIDE RECORDS SUMMARY | 2025-09-03 09:16 | XMS RPT_ITS | CCD ---
Author Organization [facility] Care Team Providers Care Court Assistant Name Role Phone Abram Villegas MD Primary Care Provider ABRAM VILLEGAS Primary Care Unavailable JOHNNGUYỄN Referring Unavailable ABRAM VILLEGAS Primary Care Unavailable Medications Current Medications Medication Drug Class(es) Dates Sig (Normalized) Sig (Original) amoxicillin 875 mg / clavulanate 125 mg oral tablet (1 source) Penicillin-class Antibacterial Start: 05-12-2023 End: 05-19-2023 take 1 tablet by mouth twice daily amoxicillin-clav ulanic acid (AUGMENTIN) 875-125 mg per tablet Take 1 tablet by mouth twice daily for 7 days. 14 tablet 0 05/12/2023 05/19/2023 Active Comment on above: Take 1 tablet by brittany twice daily for 7 days. Completed/Discontinued Medications Medication Drug Class(es) Dates Sig (Normalized) Sig (Original) azithromycin 250 mg oral tablet (1 source) Macrolide Antimicrobial Start: 10-02-2012 azithromycin (ZITHROMAX Z-ROSELINE) 250 mg tablet Take 2 tablets by mouth day one, then 1 tablet daily until gone. 1 Package 0 10/02/2012 Active Comment on above: Take 2 tablets by mo iah day one, then 1 tablet daily until gone. diphenhydrAMINE hydrochloride 25 mg oral capsule (1 source) Histamine-1 Receptor Antagonist Start: 04-19-2021 take 2 capsules by mouth every six hours as needed diphenhydrAMINE (BENADRYL) 25 mg capsule Take 2 capsules by mouth every 6 hours as needed. 20 capsule 0 04/19/2021 Active Comment on above: Take 2 capsules by m out every 6 hours as needed. lisinopril 10 mg oral tablet (1 source) Angiotensin Converting Enzyme Inhibitor Start: 03-30-2021 take 1 tablet by mouth once daily lisinopril (ZESTRIL, PRINIVIL) 10 mg tablet Take 10 mg by mouth once daily. 0 03/30/2021 Active Comment on above: Take 10 mg by mouth once daily. metFORMIN hydrochloride 1000 mg oral tablet (1 source) Biguanide Start: 03-30-2021 take 1 tablet by mouth twice daily metFORMIN (GLUCOPHAGE) 1,000 mg tablet Take 1,000 mg by mouth twice daily. 0 03/30/2021 Active Comment on above: Take 1,000 mg by brittany th twice daily. Problems Active Problems Problem Classification Problem Date Documented Date Episodic/Chronic Diabetes mellitus without complication (2 sources) Diabetes mellitus; Translations: [Type 2 diabetes mellitus without complications] Onset: 05-14-2010 06-20-2011 Chronic Disorders of lipid metabolism (1 source) Hyperlipidemia, unspecified; Translations: [Hyperlipidemia, unspecified hyperlipidemia type] Onset: 12-14-2023 Chronic Essential hypertension (3 sources) Essential hypertension; Translations: [Essential (primary) hypertension] Onset: 01-24-2007 05-12-2023 Chronic Intestinal infection (1 source) Infection caused by Helicobacter pylori; Translations: [Other specified bacterial intestinal infections] 04-26-2007 Episodic Other nutritional; endocrine; and metabolic disorders (1 source) Morbid obesity; Translations: [Morbid (severe) obesity due to excess calories] 06-20-2011 Chronic Other screening for suspected conditions (not mental disorders or infectious disease) (1 source) Encounter for screening for malignant neoplasm of prostate; Translations: [Special screening for malignant neoplasm of prostate] Onset: 12-14-2023 Episodic Other upper respiratory infections (1 source) Chronic sinusitis; Translations: [Chronic sinusitis, unspecified] 05-12-2023 Chronic Past or Other Problems Problem Classification Problem Date Documented Da te Episodic/Chronic Spondylosis; intervertebral disc disorders; other back problems (2 sources) Low back pain; Translations: [Lumbago] Onset: 11-23-2005 04-26-2007 Episodic Results Test Name Value Interpretation Reference Range Facility CBC W Auto Differential pane l (Bld)on 12-14-2023 Basophils (Bld) [#/Vol] 0.04 10*3/uL Normal <0.11 [facility] Comment on above: Order Comment: Speci men Type: BLOOD SPECIMEN Ordering Facility: [facility] Address: [address] [place] [address] [place] [address] Performed By: #### 5 7021-8 #### [facility] CLIA [id number] [address] [place] [address] [place] Basophils/100 WBC (Bld) 1.0 % Normal [facility] Comment on above: Order Comment: Speci men Type: BLOOD SPECIMEN Ordering Facility: [facility] Address: [address] [place] [address] [place] [address] Performed By: #### 5 7021-8 #### [facility] CLIA [id number] [address] [place] [address] [place] Differential cell count method Nom (Bld) Auto Normal [facility] Comment on above: Order Comment: Speci men Type: BLOOD SPECIMEN Ordering Facility: [facility] Address: [address] [place] [address] [place] [address] Performed By: #### 5 7021-8 #### [facility] CLIA [id number] [address] [place] [address] [place] Eosinophils (Bld) [#/Vol] 0.11 10*3/uL Normal <0.46 [facility] Comment on above: Order Comment: Speci men Type: BLOOD SPECIMEN Ordering Facility: [facility] Address: [address] [place] [address] [place] [address] Performed By: #### 5 7021-8 #### [facility] CLIA [id number] [address] [place] [address] [place] Eosinophils/100 WBC (Bld) 2.7 % Normal [facility] Comment on above: Order Comment: Speci men Type: BLOOD SPECIMEN Ordering Facility: [facility] Address: [address] [place] [address] [place] [id number] Performed By: #### 5 7021-8 #### [facility] CLIA [id number] [address] [place] [address] [place] Erythrocyte distribution width (RBC) [Ratio] 11.9 % Normal 11.5-15.0 [facility] Comment on above: Order Comment: Speci men Type: BLOOD SPECIMEN Ordering Facility: [facility] Address: [address] [place] [address] Performed By: #### 5 7021-8 #### [facility] CLIA [id number] [address] [place] [address] [place] Hematocrit (Bld) [Volume fraction] 44.0 % Normal 39.0-51.0 [facility] Comment on above: Order Comment: Speci men Type: BLOOD SPECIMEN Ordering Facility: [facility] Address: [address] [place] [address] Performed By: #### 5 7021-8 #### [facility] CLIA [id number] [address] [place] [address] [place] Hemoglobin (Bld) [Mass/Vol] 15.2 g/dL Normal 13.0-17.0 [facility] Comment on above: Order Comment: Speci men Type: BLOOD SPECIMEN Ordering Facility: [facility] Address: [address] [place] [address] Performed By: #### 5 7021-8 #### [facility] CLIA [id number] [address] [place] [address] [place] Immature granulocytes (Bld) [#/Vol] 10*3/uL Normal <0.10 [facility] Comment on above: Order Comment: Speci men Type: BLOOD SPECIMEN Ordering Facility: [facility] Address: [address] [place] [address] Performed By: #### 5 7021-8 #### [facility] CLIA [id number] [facility] [place] [address] [place] Immature granulocytes/100 WBC (Bld) 0.5 % Normal [facility] Comment on above: Order Comment: Speci men Type: BLOOD SPECIMEN Ordering Facility: [facility] Address: [address] [place] [address] [place] [address] Performed By: #### 5 7021-8 #### [facility] CLIA [id number] [address] [place] [address] [place] Lymphocytes (Bld) [#/Vol] 1.48 10*3/uL Normal 1.00-4.00 [facility] Comment on above: Order Comment: Speci men Type: BLOOD SPECIMEN Ordering Facility: [facility] Address: [address] [place] [address] [employer] NetworksOmayra [place] [address] Performed By: #### 5 7021-8 #### [facility] CLIA [id number] [address] [place] [address] [place] Lymphocytes/100 WBC (Bld) 36.0 % Normal [facility] Comment on above: Order Comment: Speci men Type: BLOOD SPECIMEN Ordering Facility: [facility] Address: [address] [place], [place] [address]O[place] [address] Performed By: #### 5 7021-8 #### [facility] CLIA [id number] [address] [place] [address] [place] MCH (RBC) [Entitic mass] 28.2 pg Normal 26.0-34.0 [facility] Comment on above: Order Comment: Speci men Type: BLOOD SPECIMEN Ordering Facility: [facility] Address: [address] [place] [address] [employer] QUINTERO A, [place] [phone] Performed By: #### 5 7021-8 #### [facility] CLIA [id number] [address] [place] [address] [place] MCHC (RBC) [Mass/Vol] 34.5 g/dL Normal 30.5-36.0 [facility] Comment on above: Order Comment: Speci men Type: BLOOD SPECIMEN Ordering Facility: [facility] Address: [address] [place] [address] Performed By: #### 5 7021-8 #### [facility] CLIA [id number] [address] [place] [address] [place] MCV (RBC) [Entitic vol] 81.6 fL Normal 80.0-100.0 [facility] Comment on above: Order Comment: Speci men Type: BLOOD SPECIMEN Ordering Facility: [facility] Address: [address] [place] [address] [place] [address] Performed By: #### 5 7021-8 #### [facility] CLIA [id number] [address] [place] [address] [place] Monocytes (Bld) [#/Vol] 0.38 10*3/uL Normal <0.87 [facility] Comment on above: Order Comment: Speci men Type: BLOOD SPECIMEN Ordering Facility: [facility] Address: [address] [place] [address] [place] [address] Performed By: #### 5 7021-8 #### [facility] CLIA [id number] [address] [place] [address] [place] Monocytes/100 WBC (Bld) 9.2 % Normal [facility] Comment on above: Order Comment: Speci men Type: BLOOD SPECIMEN Ordering Facility: [facility] Address: [address] [place] [address] [place] [address] Performed By: #### 5 7021-8 #### [facility] CLIA [id number] [address] [place] [address] [place] Neutrophils (Bld) [#/Vol] 2.08 10*3/uL Normal 1.45-7.50 [facility] Comment on above: Order Comment: Speci men Type: BLOOD SPECIMEN Ordering Facility: [facility] Address: [address] [place] [address] [place] [address] Performed By: #### 5 7021-8 #### [facility] CLIA [id number] [address] [place] [address] [place] Neutrophils/100 WBC (Bld) 50.6 % Normal [facility] Comment on above: Order Comment: Speci men Type: BLOOD SPECIMEN Ordering Facility: [facility] Address: [address] [place] [address] Performed By: #### 5 7021-8 #### [facility] CLIA [id number] [address] [place] [address] [place] Nucleated RBC (Bld) [#/Vol] 10*3/uL Normal <0.01 [facility] Comment on above: Order Comment: Speci men Type: BLOOD SPECIMEN Ordering Facility: [facility] Address: [address] [place] [address] Performed By: #### 5 7021-8 #### [facility] CLIA [id number] [address] [place] [address] [place] Nucleated RBC/100 WBC (Bld) [Ratio] 0.0 /100 WBC Normal [facility] Comment on above: Order Comment: Speci men Type: BLOOD SPECIMEN Ordering Facility: [facility] Address: [address] [place] [address] Performed By: #### 5 7021-8 #### [facility] CLIA [id number] [address] [place] [address] [place] Platelet mean volume (Bld) [Entitic vol] 11.3 fL Normal 9.0-12.7 [facility] Comment on above: Order Comment: Speci men Type: BLOOD SPECIMEN Ordering Facility: [facility] Address: [address] [place] [address] Performed By: #### 5 7021-8 #### [facility] CLIA [id number] [address] [place] [address] [place] Platelets (Bld) [#/Vol] 214 10*3/uL Normal 150-400 [facility] Comment on above: Order Comment: Speci men Type: BLOOD SPECIMEN Ordering Facility: [facility] Address: [address] [place] [address] YARIOmayra VÁSQUEZ [place] [phone] Performed By: #### 5 7021-8 #### [facility] CLIA [id number] [facility] [place] [address] [place] RBC (Bld) [#/Vol] 5.39 10*6/uL Normal 4.20-6.00 [facility] Comment on above: Order Comment: Speci men Type: BLOOD SPECIMEN Ordering Facility: [facility] Address: [address] [place], [place] [address]O[address] [address] Performed By: #### 5 7021-8 #### [facility] CLIA [id number] [address] [place] [address] [place] WBC (Bld) [#/Vol] 4.11 10*3/uL Normal 3.70-11.00 [facility] Comment on above: Order Comment: Speci men Type: BLOOD SPECIMEN Ordering Facility: [facility] Address: [address] [place], [place] [address]Omayra [place] [address] Performed By: #### 5 7021-8 #### [facility] CLIA [id number] [address] [place] [address] [place] Comprehensive metabolic 2000 panelon 12-14-2023 Albumin [Mass/Vol] 4.3 g/dL Normal 3.9-4.9 [facility] Comment on above: Order Comment: Speci men Type: BLOOD SPECIMEN Ordering Facility: [facility] Address: [address] [place], [place] [address]ra [place] [address] Performed By: #### 2 4331-1, 37981-9, 90333-4 #### [facility] CLIA [id number] [address] [place] [address] [place] ALP [Catalytic activity/Vol] 50 U/L Normal 38-113 [facility] Comment on above: Order Comment: Speci men Type: BLOOD SPECIMEN Ordering Facility: [facility] Address: [address] [place] [address] [place] [address] Performed By: #### 2 4331-1, 54201-2, 43982-0 #### [facility] CLIA [id number] [address] [place] [address] [place] ALT [Catalytic activity/Vol] 17 U/L Normal 10-54 [facility] Comment on above: Order Comment: Speci men Type: BLOOD SPECIMEN Ordering Facility: [facility] Address: [address] [place] [address] [place] [address] Performed By: #### 2 4331-1, 31747-1, 24057-7 #### [facility] CLIA [id number] [address] [place] [address] [place] Anion gap [Moles/Vol] 12 mmol/L Normal 9-18 [facility] Comment on above: Order Comment: Speci men Type: BLOOD SPECIMEN Ordering Facility: [facility] Address: [address] [place] [address] [place] [address] Performed By: #### 2 4331-1, 27529-7, 41744-9 #### [facility] CLIA [id number] [address] [place] [address] [place] AST [Catalytic activity/Vol] 14 U/L Normal 14-40 [facility] Comment on above: Order Comment: Speci men Type: BLOOD SPECIMEN Ordering Facility: [facility] Address: [address] [place] [address] [place] [address] Performed By: #### 2 4331-1, 39327-1, 73361-8 #### [facility] CLIA [id number] [address] [address] [place] Bilirubin [Mass/Vol] 1.1 mg/dL Normal 0.2-1.3 [facility] Comment on above: Order Comment: Speci men Type: BLOOD SPECIMEN Ordering Facility: [facility] Address: [address] [place] [address] [place] [address] Performed By: #### 2 4331-1, 61728-6, 47860-7 #### [facility] CLIA [id number] [address] [place] [id number] [place] Calcium [Mass/Vol] 9.5 mg/dL Normal 8.5-10.2 [facility] Comment on above: Order Comment: Speci men Type: BLOOD SPECIMEN Ordering Facility: [facility] Address: [address] [place] [address] [place] [address] Performed By: #### 2 4331-1, 10085-4, 47095-7 #### [facility] CLIA [id number] [address] [place], [place] [address] [place] Chloride [Moles/Vol] 98 mmol/L Normal 97-105 [facility] Comment on above: Order Comment: Speci men Type: BLOOD SPECIMEN Ordering Facility: [facility] Address: [address] [place] [address] [place] [address] Performed By: #### 2 4331-1, 69296-4, 64742-1 #### [facility] CLIA [id number] [address] [place], [place] [address] [place] CO2 [Moles/Vol] 24 mmol/L Normal 22-30 [facility] Comment on above: Order Comment: Speci men Type: BLOOD SPECIMEN Ordering Facility: [facility] Address: [address] [place] [address] [employer] [place], [place] [address] Performed By: #### 2 4331-1, 38343-7, 50826-5 #### [facility] CLIA [id number] [address] [address] [place] Creatinine [Mass/Vol] 0.87 mg/dL Normal 0.73-1.22 [facility] Comment on above: Order Comment: Speci men Type: BLOOD SPECIMEN Ordering Facility: [facility] Address: [address] [place] [address] [address] [place] [id number] Performed By: #### 2 4331-1, 40970-7, 74996-5 #### [facility] CLIA [id number] [address] [place] [address] [place] Creatinine and Glomerular filtration rate.predicted panel (S/P/Bld) 110 mL/min/1.73m??? Normal >=60 [facility] Comment on above: Order Comment: [place] jerry Type: BLOOD SPECIMEN Ordering Facility: [facility] Address: [address] [place] [address] [place] [address] Result Comment: Gemini mated Glomerular Filtration Rate (eGFR) is calculated using the 2020 CKD-EPI creatinine equation. This equation utilizes serum creatinine, sex, and age as parameters. The creatinine assay has traceable calibration to isotope dilution-mass spectrometry. Refer to KDIGO guidelines for clinical interpretation. In patients with unstable renal function, e.g. those with acute kidney injury, the eGFR may not accurately reflect actual GFR. Performed By: #### 2 4331-1, 05161-8, 85618-5 #### [facility] CLIA [id number] [address] [place] [address] [place] Glucose [Mass/Vol] 364 mg/dL High 74-99 [facility] Comment on above: Order Comment: [place] jerry Type: BLOOD SPECIMEN Ordering Facility: [facility] Address: [address] [place], [place] [address]O[place] [address] Result Comment: The [place] [employer] (ADA) provides guidance for cutoff values for fasting glucose and random glucose. The ADA defines fasting as no caloric intake for at least 8 hours. Fasting plasma glucose results between 100 to 125 mg/dL indicate increased risk for diabetes (prediabetes). Fasting plasma glucose results greater than or equal to 126 mg/dL meet the criteria for diagnosis of diabetes. In the absence of unequivocal hyperglycemia, results should be confirmed by repeat testing. In a patient with classic symptoms of hyperglycemia or hyperglycemic crisis, random plasma glucose results greater than or equal to 200 mg/dL meet the criteria for diagnosis of diabetes. Reference: Standards of Medical Care in Diabetes 2016, [place] [employer]. Diabetes Care. 2016.39(Suppl 1). Performed By: #### 2 4331-1, 84191-7, 20854-5 #### [facility] CLIA [id number] [address] [place] [address] [place] Potassium [Moles/Vol] 4.8 mmol/L Normal 3.7-5.1 [facility] Comment on above: Order Comment: Speci men Type: BLOOD SPECIMEN Ordering Facility: [facility] Address: [address] [place] [address] [facility] [place] [address] Performed By: #### 2 4331-1, 37093-4, 84141-2 #### [facility] CLIA [id number] [address] [place], [place] [address] [place] Protein [Mass/Vol] 6.8 g/dL Normal 6.3-8.0 [facility] Comment on above: Order Comment: Speci men Type: BLOOD SPECIMEN Ordering Facility: [facility] Address: [address] [place] [address] [place] [address] Performed By: #### 2 4331-1, 24673-4, 78805-2 #### [facility] CLIA [id number] [address] [place], [place] [address] [place] Sodium [Moles/Vol] 134 mmol/L Low 136-144 [facility] Comment on above: Order Comment: Speci men Type: BLOOD SPECIMEN Ordering Facility: [facility] Address: [address] [place] [address] [employer] [place] [address] Performed By: #### 2 4331-1, 66681-4, 42144-5 #### [facility] CLIA [id number] [address] [place] [address] [place] Urea nitrogen [Mass/Vol] 14 mg/dL Normal 9-24 [facility] Comment on above: Order Comment: Speci men Type: BLOOD SPECIMEN Ordering Facility: [facility] Address: [address] [place] [address] [place] [address] Performed By: #### 2 4331-1, 77796-3, 85881-4 #### [facility] CLIA [id number] [address] [place] [address] [place] Free PSA [Mass/Vol]on 2023 Free PSA/Total PSA [Mass fraction] 30 % Normal [facility] Comment on above: Order Comment: Speci men Type: BLOOD SPECIMEN Ordering Facility: [facility] Address: [address] [place] [address] [place] [place] [address] Result Comment: Tota l and free PSA test methodology used is the Electrochemiluminescence Immunoassay by [employer]. Total or free PSA values by differing methodologies cannot be interchanged. The below table lists the probability of finding prostate cancer upon needle biopsy, for men 50 years or older and total PSA concentrations from 4.0-10.0 ng/mL. Results should be interpreted within the broader clinical context. Free PSA(%) 50-59 years 60-69 years >69 years <11 49.2% 57.5% 64.5% 11-18 26.9% 33.9% 40.8% 19-25 18.3% 23.9% 29.7% >25 9.1% 12.2% 15.8% Performed By: #### 2 4331-1, 07461-9, 55625-3 #### [facility] [facility] CLIA [id number] [address] [place] [address] [place] Prostate specific Ag [Mass/Vol] 0.67 ng/mL Normal <2.60 [facility] Comment on above: Order Comment: Speci men Type: BLOOD SPECIMEN Ordering Facility: [facility] Address: [address] [place] [address] [place] [address] Result Comment: Tota l PSA test methodology used is the Electrochemiluminescence Immunoassay by [employer]. Total PSA values by differing methodologies cannot be interchanged. Performed By: #### 2 4331-1, 48365-2, 57624-1 #### [facility] CLIA [id number] [address] [place] [address] [place] Lipid 1996 panelon 4 Cholesterol [Mass/Vol] 207 mg/dL High <200 [facility] Comment on above: Order Comment: Claudinelulu edwards Type: BLOOD SPECIMEN Ordering Facility: [facility] Address: [address] [place] [address] [employer] [place] [address] Result Comment: <200 mg/dL, Desirable 200-239 mg/dL, Borderline high >239 mg/dL, High Performed By: #### 2 4331-1, 71593-4, 00675-9 #### [facility] CLIA [id number] [address] [place] [address] [place] Cholesterol in HDL [Mass/Vol] 36 mg/dL Low >39 [facility] Comment on above: Order Comment: Raleigh jerry Type: BLOOD SPECIMEN Ordering Facility: [facility] Address: [address] [place] [address] [employer] [address], [place] [address] Result Comment: 40-5 9 mg/dL, Acceptable >59 mg/dL, High: Negative risk factor for coronary heart disease <40 mg/dL, Low: Positive risk factor for coronary heart disease Performed By: #### 2 4331-1, 10033-5, 82494-3 #### [facility] CLIA [id number] [address] [place] [address] [place] Cholesterol in LDL [Mass/Vol] 120 mg/dL High <100 [facility] Comment on above: Order Comment: Claudinei jerry Type: BLOOD SPECIMEN Ordering Facility: [facility] Address: [address] [place] [address] [employer] [address], [place] [address] Result Comment: <100 mg/dL, Optimal 100-129 mg/dL, Near optimal/above optimal 130-159 mg/dL, Borderline high 160-189 mg/dL, High >189 mg/dL, Very high Secondary prevention optimal LDL Cholesterol levels are recommended to be < 70 mg/dL Performed By: #### 2 4331-1, 19748-8, 61572-1 #### [facility] CLIA [id number] [address] [place] [address] [place] Cholesterol in LDL/Cholesterol in HDL [Mass ratio] 3.33 {ratio} High <2.54 [facility] Comment on above: Order Comment: Raleigh edwards Type: BLOOD SPECIMEN Ordering Facility: [facility] Address: [address] [place] [address] Result Comment: Refe rence: 1. National Cholesterol Education Program ATP III Guideline At-A-Glance Quick Desk Reference: National Heart, Lung, and Blood Pandora. National Institutes of Health. 2001: NIH Publication No. 01-3305. 2. An International Atherosclerosis Society position paper: global recommendations for the management of dyslipidemia: executive summary, Atherosclerosis. 2014: 232(2):410-413. Performed By: #### 2 4331-1, 87552-6, 31750-6 #### [facility] [place] [id number] [facility] [place] [address] [place] Cholesterol in VLDL [Mass/Vol] 51 mg/dL High <30 [facility] Comment on above: Order Comment: Raleigh edwards Type: BLOOD SPECIMEN Ordering Facility: [facility] Address: [address] [place] [address] Performed By: #### 2 4331-1, 26098-9, 11919-5 #### [facility] [place] [id number] [address] [place] [address] [place] Cholesterol non HDL [Mass/Vol] 171 mg/dL High <130 [facility] Comment on above: Order Comment: Claudinei jerry Type: BLOOD SPECIMEN Ordering Facility: [facility] Address: [address] [place] [address] Result Comment: <130 mg/dL, Optimal 130-159 mg/dL, Near optimal/above optimal 160-189 mg/dL, Borderline high 190-219 mg/dL, High >219 mg/dL, Very high Secondary prevention optimal non HDL Cholesterol levels are recommended to be <100 mg/dL Performed By: #### 2 4331-1, 48545-1, 38770-1 #### [facility] CLIA [id number] [address] [place] [address] [place] Cholesterol.total /Cholesterol in HDL [Mass ratio] 5.75 {ratio} High <5.10 [facility] Comment on above: Order Comment: Speci men Type: BLOOD SPECIMEN Ordering Facility: [facility] Address: [address] [place] [address] [employer], [place] [address] Performed By: #### 2 4331-1, 22333-6, 10220-5 #### [facility] CLIA [id number] [address] [place] [address] [place] FASTING TIME 12 hrs Normal [facility] Comment on above: Order Comment: Speci men Type: BLOOD SPECIMEN Ordering Facility: [facility] Address: [address] [place], [place] [address] [address], [place] [address] Performed By: #### 2 4331-1, 25070-2, 02998-1 #### [facility] CLIA [id number] [address] [place] [address] [place] Triglyceride [Mass/Vol] 257 mg/dL High <150 [facility] Comment on above: Order Comment: Speci men Type: BLOOD SPECIMEN Ordering Facility: [facility] Address: [address] [place] [address] [employer] [address] [address], [place] [address] Result Comment: <150 mg/dL, Normal 150-199 mg/dL, Borderline high 200-499 mg/dL, High >499 mg/dL, Very high Performed By: #### 2 4331-1, 79619-8, 06924-4 #### [facility] CLIA [id number] [address] [place] [address] [place] CNOVon 05-12-2023 CNOV Office Visit ([facility] ) STANTON CASTRO ([id number]) 1980 M Date Time Provider Department 05/12/23 3:00 PM SAVANNA TAYLOR [facility] During your visit today, we recorded the following information about you: Temperature Pulse Respiration Blood pressure 98.8 degrees 90/minute 20/minute 194/110 Weight 134.7 kg Savanna Taylor APRN.LOCKER ROOM ATTENDANT 05/12/2023 3:51 PM Signed Subjective The history is provided by the patient. No languages and literature instructor was used. HPI Stanton Castro is a 42 year old male who presents today for CC of sinus pressure and cough for 6 weeks. He has used OTC medications without relief. He denies any severe headache, chest pain, blurred vision. He has known hypertension, but ran out of lisinopril, his physician is no longer working in [place]. No labs for over a year. Patient will call office and try to get an appointment. Advised when to go to ER BP 194/110 Pulse 90 Temp 37.1 ?C (98.8 ?F) Resp 20 Wt 134.7 kg (297 lb) SpO2 97% BP recheck 180/92 Social History Tobacco Use Smoking status: Never Smokeless tobacco: Never Substance Use Topics Alcohol use: Yes Alcohol/week: 1.7 standard drinks of alcohol Comment: 6 beers per month, usually less (11/15) Drug use: No PAST MEDICAL HISTORY Diagnosis Date Dyspepsia and other specified disorders of function of stomach 1998 h pylori Helicobacter pylori (H. pylori) 1998 Impaired fasting glucose 04/17 Lumbago 1998 2005, disc rupture (chiro, Cox) Morbid obesity (HCC) age 11 +/- Other abnormal blood chemistry HYPERURICEMIA, on BP labs 04/17 I have confirmed and edited as necessary, the [facility] Review of Systems Constitutional: Negative for chills and fever. HENT: Positive for congestion and sinus pain. Negative for ear pain and sore throat. Respiratory: Positive for cough. Negative for sputum production, shortness of breath and wheezing. Cardiovascular: Negative for chest pain. Musculoskeletal: Negative for myalgias. Neurological: Positive for headaches (sinus). Objective Physical Exam Vitals and nursing note reviewed. Constitutional: Appearance: He is not toxic-appearing. HENT: Head: Normocephalic and atraumatic. Right Ear: Tympanic membrane, ear canal and external ear normal. Left Ear: Tympanic membrane, ear canal and external ear normal. Nose: Mucosal edema, congestion and rhinorrhea present. Right Sinus: Maxillary sinus tenderness present. No frontal sinus tenderness. Left Sinus: Maxillary sinus tenderness present. No frontal sinus tenderness. Mouth/Throat: Pharynx: Uvula midline. No oropharyngeal exudate or posterior oropharyngeal erythema. Tonsils: No tonsillar abscesses. Cardiovascular: Rate and Rhythm: Normal rate and regular rhythm. Heart sounds: Normal heart sounds. Pulmonary: Effort: Pulmonary effort is normal. Breath sounds: Normal breath sounds. No decreased breath sounds, wheezing, rhonchi or rales. Lymphadenopathy: Head: Right side of head: No submental, submandibular, tonsillar or preauricular adenopathy. Left side of head: No submental, submandibular, tonsillar or preauricular adenopathy. Cervical: No cervical adenopathy. Right cervical: No superficial cervical adenopathy. Left cervical: No superficial cervical adenopathy. Neurological: Mental Status: He is alert. ASSESSMENT/PLAN: 1. Sinobronchitis - ICD9: 473.9, 490, ICD10: J32.9, J40 (primary diagnosis) - Will begin treatment with Augmentin 875 mg PO BID for 7 days - The patient should also be given warm salt water gargles, throat lozenges and/or OTC throat spray as needed for the first 5-7 days of treatment. - Supportive care with plenty of fluids, rest, and analgesia prn. Saline, zyrtec, flonase - Follow up in one week if symptoms persist or worsen. 2. Hypertension, essential - ICD9: 401.9, ICD10: I10 - Uncontrolled - Recommend home blood pressure monitoring, to bring results to next visit - Encouraged sodium restriction, DASH or Mediterranean diet - Recommend regular aerobic exercise - Follow up shelia for medication management. Diagnosis and treatment plan were discussed and questions were answered to the patient's satisfaction. Pt acknowledged understanding of concepts and follow up plan. Specific signs and symptoms that would indicate the need for higher level of care were discussed in detail warranting prompt ER evaluation. RIKI Grubbs Tonya, APRN.CNP 05/12/2023 3:29 PM Signed -Increase fluid intake. --Rest as much as possible. - Nasal saline spray, carie pot Flonase or Nasonex 2 sprays in each nostril once a day Zyrtec 10 mg By mouth daily at bedtime Take the entire course of antibiotics as prescribed. DO NOT stop taking it early, even if you are feeling better. -Monitor for signs of worsening infection: increased temperature, pain in face, ear pain or headaches or increase in n (more content not included)... Normal [facility] Basic Metabolic Profile (BMP )on 11-11-2020 BUN/CRE 14.9 RATIO Normal 10-20 [facility] Comment on above: Performed By: #### L 500.4100, L500.2500 #### [facility] [address] [place], [address] CA,Total 9.1 mg/dL Normal 8.5-10.1 [facility] Comment on above: Performed By: #### L 500.4100, L500.2500 #### [facility] [address] [place], [address] Chloride [Moles/Vol] 102 mmol/L Normal 98-107 [facility] Comment on above: Performed By: #### L 500.4100, L500.2500 #### [facility] [address] [place], [address] CO2 [Moles/Vol] 28.0 mmol/L Normal 21.0-32.0 [facility] Comment on above: Performed By: #### L 500.4100, L500.2500 #### [facility] [address] [place], [address] Creatinine [Mass/Vol] 0.88 mg/dL Normal 0.70-1.30 [facility] Comment on above: Result Comment: The validity of the calculated GFR GFRAA in patients over 70 years has not been determined. Clinical correlation is essential. Performed By: #### L 500.4100, L500.2500 #### [facility] [address] [place], [address] EST GFR - AA 125 mL/min Normal >60 [facility] Comment on above: Result Comment: Afri can Libyan GFR Calc Performed By: #### L 500.4100, L500.2500 #### [facility] [address] [place], [address] GAP 6 Normal 5-15 [facility] Comment on above: Performed By: #### L 500.4100, L500.2500 #### [facility] [address] [place], [address] GFR/1.73 sq M.predicted among non-blacks MDRD (S/P/Bld) [Vol rate/Area] 103 mL/min/{1.73_m2} Normal >60 [facility] Comment on above: Result Comment: Non- GFR Calc Performed By: #### L 500.4100, L500.2500 #### [facility] [address] [place], [address] Glucose [Mass/Vol] 267 mg/dL High 74-106 [facility] Comment on above: Result Comment: Gluc ose result greater than or equal to 200 mg/dL suggests DIABETES MELLITUS per A.D.A. criteria. Please note revised GLUCOSE reference range effective 2017. Performed By: #### L 500.4100, L500.2500 #### [facility] [address] [place], [address] Potassium [Moles/Vol] 4.2 mmol/L Normal 3.5-5.1 [facility] Comment on above: Performed By: #### L 500.4100, L500.2500 #### [facility] [address] [place], [address] Sodium [Moles/Vol] 136 mmol/L Normal 136-145 [facility] Comment on above: Performed By: #### L 500.4100, L500.2500 #### [facility] [address] [place], [address] Urea nitrogen [Mass/Vol] 13 mg/dL Normal 7-18 [facility] Comment on above: Performed By: #### L 500.4100, L500.2500 #### [facility] [address] [place], [address] Lipid Profileon 11-11-2020 Cholesterol [Mass/Vol] 196 mg/dL Normal 200 [facility] Comment on above: Result Comment: <200 mg/dL Desirable 200-240 mg/dL Borderline >240 mg/dL High Risk Performed By: #### L 500.4100, L500.2500 #### [facility] [address] [place], [address] Cholesterol in HDL [Mass/Vol] 41 mg/dL Normal [facility] Comment on above: Result Comment: The drugs N-Acetylcysteine and Metamizole may falsely depress this assay. Reference Range HDL <40 mg/dL Low HDL Cholesterol HDL >or= 60 mg/dL High HDL Cholesterol Performed By: #### L 500.4100, L500.2500 #### [facility] [address] [place], [address] Cholesterol in LDL [Mass/Vol] 107 mg/dL Normal 0-130 [facility] Comment on above: Performed By: #### L 500.4100, L500.2500 #### [facility] [address] [place], [address] Cholesterol in VLDL [Mass/Vol] 48 mg/dL High 5-40 [facility] Comment on above: Performed By: #### L 500.4100, L500.2500 #### [facility] [address] [place], [address] Triglyceride [Mass/Vol] 238 mg/dL High [facility] Comment on above: Result Comment: The drugs N-Acetylcysteine and Metamizole may falsely depress this assay. Serum Triglycerides Reference Interval Normal <150 mg/dL Borderline high 150 - 199 mg/dL High 200 - 499 mg/dL Very High > or = 500 mg/dL Performed By: #### L 500.4100, L500.2500 #### [facility] [address] [place], [address] Vital Signs Date Time Vital Sign Value Performing Clinician Austin carter 05-12-2023 15:06-0400 Body temperature 98.8 [degF] Savanna Taylor INFANTRY OPERATIONS SPECIALIST.LOCKER ROOM ATTENDANT Work Phone: [facility] 05-12-2023 15:06-0400 Body weight 134.72 kg Savanna Taylor INFANTRY OPERATIONS SPECIALIST.LOCKER ROOM ATTENDANT Work Phone: [facility] 05-12-2023 15:06-0400 Diastolic blood pressure 110 mm[Hg] Savanna Taylor INFANTRY OPERATIONS SPECIALIST.LOCKER ROOM ATTENDANT Work Phone: [facility] 05-12-2023 15:06-0400 Heart rate 90 /min Savanna Taylor INFANTRY OPERATIONS SPECIALIST.LOCKER ROOM ATTENDANT Work Phone: [facility] 05-12-2023 15:06-0400 Respiratory rate 20 /min Savanna Taylor INFANTRY OPERATIONS SPECIALIST.LOCKER ROOM ATTENDANT Work Phone: [facility] 05-12-2023 15:06-0400 SaO2% (BldA) [Mass fraction] 97 % Savanna Taylor INFANTRY OPERATIONS SPECIALIST.LOCKER ROOM ATTENDANT Work Phone: [facility] 05-12-2023 15:06-0400 Systolic blood pressure 194 mm[Hg] Savanna Taylor INFANTRY OPERATIONS SPECIALIST.LOCKER ROOM ATTENDANT Work Phone: [facility] Encounters Encounter Date Encounter Type Care Provider Facility Start: 12-14-2023 End: 12-15-2023 ambulatory NGUYỄN LOPEZ Facility:[facility] Start: 05-12-2023 End: 05-12-2023 ambulatory ABRAM VILLEGAS Facility:[facility] Start: 05-12-2023 End: 05-12-2023 Patient encounter procedure Savanna Taylor APRN.LOCKER ROOM ATTENDANT Work Phone: [facility] Comment on above: Sinobronchitis (Prim stanley Dx); Hypertension, essential Plan of Treatment Date Care Activity Detail Author Start: 05-12-2023 Influenza vaccination INFLUENZA (#1) [facility] Start: 09-11-2022 DEPRESSION ASSESSMENT DEPRESSION ASS ESSMENT [facility] Start: 03-18-2021 COVID-19 VACCINE (3 - Pfizer series) COVID-19 VACCINE (3 - Pfizer series) [facility] Start: 11-14-2019 Urine microalbumin profile DTAP,TDAP,TD (2 - Td or Tdap) [facility] Start: 12-20-2011 Hemoglobin A1c/Hemoglobin.total in Blood HBA1C [facility] Start: 11-06-2011 Hepatitis B screening URINE AL BUMIN:CREATININE RATIO [facility] Start: 11-06-2011 Hepatitis B surface antibody level LDL CHOLESTEROL [facility] Start: 10-19-2011 Hepatitis C antibody , confirmatory test DILATED RETINAL EXAM [facility] Start: 05-14-2011 3 comp foot exam completed DIABETIC FOOT EXAM [facility] Start: 1999 ANNUAL PCP TEAM ADAPTIVE PHYSICAL EDUCATOR JAMES DISEASE VISIT ANNUAL PCP TEAM CHRONIC DISEASE VISIT [facility] Start: 1999 BP CONTROLLED (<130/80) BP CONTROLLE D (<130/80) [facility] Start: 1999 HEPATITIS C SCREENING HEPATITIS C SC REERUSTY [facility] Start: 1999 HIV SCREENING HIV SCREENING [facility] Start: 1987 PNEUMOCOCCAL (1 - PCV) PNEUMOCOCCAL (1 - PCV) [facility] Start: 1981 HEPATITIS B (1 of 3 - 3-dose series) HEPATITIS B (1 of 3 - 3-dose series) [facility] Immunizations Immunization Date Immunization Notes Care Provider Fa xavier 11-13-2009 tetanus toxoid, redu lito diphtheria toxoid, and acellular pertussis vaccine, adsorbed Savanna Taylor INFANTRY OPERATIONS SPECIALIST.LOCKER ROOM ATTENDANT Work Phone: [facility] Work Phone: Payers Date Payer Category Payer Unknown MMO [employer] PPO [id number] 2019-Present [phone] [address] [place] [address] PPO [id number] 2019 Unknown [id number] Social History Date Type Detail Facility Start: 05-12-2023 Tobacco smoking stat us NHIS Never smoked tobacco [facility] Start: 05-12-2023 Tobacco use and exposure Smoke less tobacco non-user [facility] Start: 05-12-2023 Alcohol intake Current drinke r of alcohol (finding) [facility] Start: 08-29-2020 End: 05-12-2023 Alcohol intake [facility] Start: 08-29-2020 End: 05-12-2023 Tobacco use panel [facility] National Score (1-10 0), lower number is lower risk Not on file [facility] Start: 1980 Sex Assigned At Not on file [facility] Medical Equipment Procedure Code Equipment Code Equipment Origin al Text Equipment Identifier Dates Start: 02-05-2010 Comment on above: Test blood sugars tw ice daily and as needed. DX 250.02, Insulin Dep: NO Test blood sugar twi ce daily and as needed Progress note 05-12-2023 Note Date & Type Note Facility 05-12-2023 Note HNO ID: [id number] Author: Savanna Taylor APRN.LOCKER ROOM ATTENDANT Service: ? Author Type: Nurse Practitioner Type: Progress Notes Filed: 05/12/2023 3:51 PM Note Text: Subjective The history is provided by the patient. No languages and literature instructor was used. HPI Stanton Castro is a 42 year old male who presents today for CC of sinus pressure and cough for 6 weeks. He has used OTC medications without relief. He denies any severe headache, chest pain, blurred vision. He has known hypertension, but ran out of lisinopril, his physician is no longer working in [place]. No labs for over a year. Patient will call office and try to get an appointment. Advised when to go to ER BP 194/110 Pulse 90 Temp 37.1 ?C (98.8 ?F) Resp 20 Wt 134.7 kg (297 lb) SpO2 97% BP recheck 180/92 Social History Tobacco Use Smoking status: Never Smokeless tobacco: Never Substance Use Topics Alcohol use: Yes Alcohol/week: 1.7 standard drinks of alcohol Comment: 6 beers per month, usually less (11/15) Drug use: No PAST MEDICAL HISTORY Diagnosis Date Dyspepsia and other specified disorders of function of stomach 1998 h pylori Helicobacter pylori (H. pylori) 1998 Impaired fasting glucose 04/17 Lumbago 1998 2004, disc rupture ([place]) Morbid obesity (HCC) age 11 +/- Other abnormal blood chemistry HYPERURICEMIA, on BP labs 04/17 I have confirmed and edited as necessary, the [facility] Review of Systems Constitutional: Negative for chills and fever. HENT: Positive for congestion and sinus pain. Negative for ear pain and sore throat. Respiratory: Positive for cough. Negative for sputum production, shortness of breath and wheezing. Cardiovascular: Negative for chest pain. Musculoskeletal: Negative for myalgias. Neurological: Positive for headaches (sinus). Objective Physical Exam Vitals and nursing note reviewed. Constitutional: Appearance: He is not toxic-appearing. HENT: Head: Normocephalic and atraumatic. Right Ear: Tympanic membrane, ear canal and external ear normal. Left Ear: Tympanic membrane, ear canal and external ear normal. Nose: Mucosal edema, congestion and rhinorrhea present. Right Sinus: Maxillary sinus tenderness present. No frontal sinus tenderness. Left Sinus: Maxillary sinus tenderness present. No frontal sinus tenderness. Mouth/Throat: Pharynx: Uvula midline. No oropharyngeal exudate or posterior oropharyngeal erythema. Tonsils: No tonsillar abscesses. Cardiovascular: Rate and Rhythm: Normal rate and regular rhythm. Heart sounds: Normal heart sounds. Pulmonary: Effort: Pulmonary effort is normal. Breath sounds: Normal breath sounds. No decreased breath sounds, wheezing, rhonchi or rales. Lymphadenopathy: Head: Right side of head: No submental, submandibular, tonsillar or preauricular adenopathy. Left side of head: No submental, submandibular, tonsillar or preauricular adenopathy. Cervical: No cervical adenopathy. Right cervical: No superficial cervical adenopathy. Left cervical: No superficial cervical adenopathy. Neurological: Mental Status: He is alert. ASSESSMENT/PLAN: 1. Sinobronchitis - ICD9: 473.9, 490, ICD10: J32.9, J40 (primary diagnosis) - Will begin treatment with Augmentin 875 mg PO BID for 7 days - The patient should also be given warm salt water gargles, throat lozenges and/or OTC throat spray as needed for the first 5-7 days of treatment. - Supportive care with plenty of fluids, rest, and analgesia prn. Saline, zyrtec, flonase - Follow up in one week if symptoms persist or worsen. 2. Hypertension, essential - ICD9: 401.9, ICD10: I10 - Uncontrolled - Recommend home blood pressure monitoring, to bring results to next visit - Encouraged sodium restriction, DASH or Mediterranean diet - Recommend regular aerobic exercise - Follow up shelia for medication management. Diagnosis and treatment plan were discussed and questions were answered to the patient's satisfaction. Pt acknowledged understanding of concepts and follow up plan. Specific signs and symptoms that would indicate the need for higher level of care were discussed in detail warranting prompt ER evaluation. Savanna Taylor APRN.[facility] Instructions 05-12-2023 Patient Instructions Note Date & Type Note Facility 05-12-2023 Instructions Savanna Taylor APRN.[facility]ILLY - 05/12/2023 3:29 PM EDT -Increase fluid intake. --Rest as much as possible. - Nasal saline spray, carie pot Flonase or Nasonex 2 sprays in each nostril once a day Zyrtec 10 mg By mouth daily at bedtime Take the entire course of antibiotics as prescribed. DO NOT stop taking it early, even if you are feeling better. -Monitor for signs of worsening infection: increased temperature, pain in face, ear pain or headaches or increase in nasal congestion/mucous that is not improving. -Educated patient on side effects of medication. Follow up with PCP as soon as posible for elevated BP * Seek medical care immediately, call 911, go to ER if you have chest pain, difficulty breathing, shortness of breath, inability to swallow. documented in this encounter [facility] History of Present illness Narrative 05-12-2023 Savanna Taylor APRN.WILLY - 05/12/2023 3:26 PM EDT Note Date & Type Note Facility 05-12-2023 History of Presen t illness Narrative Subjective The history is provided by the patient. No languages and literature instructor was used. HPI Stanton Castro is a 42 year old male who presents today for CC of sinus pressure and cough for 6 weeks. He has used OTC medications without relief. He denies any severe headache, chest pain, blurred vision. He has known hypertension, but ran out of lisinopril, his physician is no longer working in [place]. No labs for over a year. Patient will call office and try to get an appointment. Advised when to go to ER BP 194/110 Pulse 90 Temp 37.1 C (98.8 F) Resp 20 Wt 134.7 kg (297 lb) SpO2 97% BP recheck 180/92 Social History Tobacco Use Smoking status: Never Smokeless tobacco: Never Substance Use Topics Alcohol use: Yes Alcohol/week: 1.7 standard drinks of alcohol Comment: 6 beers per month, usually less (11/15) Drug use: No PAST MEDICAL HISTORY Diagnosis Date Dyspepsia and other specified disorders of function of stomach 1998 h pylori Helicobacter pylori (H. pylori) 1998 Impaired fasting glucose 04/17 Lumbago 1998 2004, disc rupture (chiro, Cox) Morbid obesity (HCC) age 11 +/- Other abnormal blood chemistry HYPERURICEMIA, on BP labs 04/17 I have confirmed and edited as necessary, the [facility] Review of Systems Constitutional: Negative for chills and fever. HENT: Positive for congestion and sinus pain. Negative for ear pain and sore throat. Respiratory: Positive for cough. Negative for sputum production, shortness of breath and wheezing. Cardiovascular: Negative for chest pain. Musculoskeletal: Negative for myalgias. Neurological: Positive for headaches (sinus). Objective Physical Exam Vitals and nursing note reviewed. Constitutional: Appearance: He is not toxic-appearing. HENT: Head: Normocephalic and atraumatic. Right Ear: Tympanic membrane, ear canal and external ear normal. Left Ear: Tympanic membrane, ear canal and external ear normal. Nose: Mucosal edema, congestion and rhinorrhea present. Right Sinus: Maxillary sinus tenderness present. No frontal sinus tenderness. Left Sinus: Maxillary sinus tenderness present. No frontal sinus tenderness. Mouth/Throat: Pharynx: Uvula midline. No oropharyngeal exudate or posterior oropharyngeal erythema. Tonsils: No tonsillar abscesses. Cardiovascular: Rate and Rhythm: Normal rate and regular rhythm. Heart sounds: Normal heart sounds. Pulmonary: Effort: Pulmonary effort is normal. Breath sounds: Normal breath sounds. No decreased breath sounds, wheezing, rhonchi or rales. Lymphadenopathy: Head: Right side of head: No submental, submandibular, tonsillar or preauricular adenopathy. Left side of head: No submental, submandibular, tonsillar or preauricular adenopathy. Cervical: No cervical adenopathy. Right cervical: No superficial cervical adenopathy. Left cervical: No superficial cervical adenopathy. Neurological: Mental Status: He is alert. ASSESSMENT/PLAN: 1. Sinobronchitis - ICD9: 473.9, 490, ICD10: J32.9, J40 (primary diagnosis) - Will begin treatment with Augmentin 875 mg PO BID for 7 days - The patient should also be given warm salt water gargles, throat lozenges and/or OTC throat spray as needed for the first 5-7 days of treatment. - Supportive care with plenty of fluids, rest, and analgesia prn. Saline, zyrtec, flonase - Follow up in one week if symptoms persist or worsen. 2. Hypertension, essential - ICD9: 401.9, ICD10: I10 - Uncontrolled - Recommend home blood pressure monitoring, to bring results to next visit - Encouraged sodium restriction, DASH or Mediterranean diet - Recommend regular aerobic exercise - Follow up shelia for medication management. Diagnosis and treatment plan were discussed and questions were answered to the patient's satisfaction. Pt acknowledged understanding of concepts and follow up plan. Specific signs and symptoms that would indicate the need for higher level of care were discussed in detail warranting prompt ER evaluation. Savanna Taylor APRN.[facility] documented in this encounter [facility] Evaluation note Note Date & Type Note Facility Evaluation note Diagnosis Sinobronchitis- Primary Unspecified sinusitis (chronic) Hypertension, essential Unspecified essential hypertension documented in this encounter [facility] Summary Purpose Family History No Family History Records FoundNo Family History Records Found Advance Directives No Advanced Directives Records FoundNo Advanced Directives Records Found Additional Source Comments (unrecognized sect ion and content) No Status Records FoundNo Status Records Found INFORMATION SOURCE (unrecogn ized section and content) DATE CREATED AUTHOR 10/26/2021 [facility] DATE CREATED AUTHOR AUTHOR'S NADEGE ATION 12/15/2023 [facility] Source Comments (unrecognize d section and content) In the event this informatio n is protected by the Federal Confidentiality of Alcohol and Drug Abuse Patient Records regulations: The Federal rules restrict any use of the information to criminally investigate or prosecute any alcohol or drug abuse patient.[facility] Reason for Visit (unrecogniz ed section and content) Reason Comments Chest Congestion X 6 wks moving into sinus Care Teams (unrecognized sec tion and content) Court Assistant Relationship Specialty Start Date End Date Abram Villegas MD PCP - General 11/29/06 FOR RECORDS PERTAINING TO PATIENTS WHO ARE OR HAVE BEEN ENROLLED IN A CHEMICAL DEPENDENCY/SUBSTANCEABUSE PROGRAM, SOME INFORMATION MAY BE OMITTED. This clinical summary was aggregated from multiple sources. Caution should be exercised in using it in the provision of clinical care. This summary normalizes information from multiple sources, and as a consequence, information in this document may materially change the coding, format and clinical context of patient data. In addition, data may be omitted in some cases. CLINICAL DECISIONS SHOULD BE BASED ON THE PRIMARY CLINICAL RECORDS. [employer] [facility]. provides no warranty or guarantee of the accuracy or completeness of information in this document.
[2025-09-03 09:36] LABS: AST(SGOT) 19 U/L (<=37); Alanine Aminotransfer ALT/SGPT 24 U/L (<=46); Albumin, Serum 4.4 g/dL (3.5-5.0); Alkaline Phosphatase 44 U/L (40-129); Anion Gap 10 (7-18); BUN 17 mg/dL (4-19); BUN/Creat Ratio 17.1 RATIO (10-20); Calcium,Total 9.4 mg/dL (7.6-11.0); Carbon Dioxide 27.5 mmol/L (20.0-29.0); Chloride 96 mmol/L (96-106); Cholesterol 306 mg/dL (<=200); Globulin 2.7 g/dL (2.2-4.2); Glucose 428 mg/dL (70-99); Low Density Lipoprotein Calc. 167 mg/dL; PSA,Total - Annual Screen 0.47 ng/mL (0.02-4.00); Potassium 5.1 mmol/L (3.5-5.1); Triglycerides 498 mg/dL; Very Low Density Lipoprotein 100 mg/dL (5-40); cholesterol:hdl ratio screen 7.65
== END | disposition home or self-care (01) ==
LOC: LAB 08:57
PROVIDERS: PCP Nurse Practitioner Family; Referring Provider Nurse Practitioner Family; Visit Provider Nurse Practitioner Family
DX: Z12.5 Encounter for screening for malignant neoplasm of prostate (principal); E11.9 Type 2 diabetes mellitus without complications; I10 Essential (primary) hypertension; E78.5 Hyperlipidemia, unspecified
CPT/HCPCS: 36415; 80053; 80061; 84153; 85025; G0103